=== PATIENT | female | born 1980 | race Caucasian/White ===

== ENCOUNTER 2024-04-14 14:12 | Outpatient (CLI) | payer MEDICARE, MEDICAID, SELFPAY ==
--- OUTSIDE RECORDS SUMMARY | 2024-04-15 11:14 | XMS_ITS | Encounter Summary ---
Author Organization [facility] Address [address] [place] [address] Care Team Providers Care Carbon Coating Machine Operator Name Role Phone Laverne Lopez APRN C.N.PFreya Primary Care Provi [facility] Reason for Referral * Outpatient (Routine) - Authorized Specialty Diagnoses / Procedures Referred By Contac t Referred To Contact Urology Diagnoses Microhematuria Nicotine Dependence Unspecified Matt Dugan M.D. [address] [place] [address] [facility] Region Referral ID Status Reason Start Date Expiration Date V isits Requested Visits Authorized [id number] Authorized 04/15/2024 10/15/2025 1 1 Encounter Details Date Type Department Care Team (Latest Contact Info) Description 04/15/2024 [facility] [address] [place] [address] Matt Dugan M.D. [address] [place] [address] Microhematuria (Primary Dx); Nicotine Dependence Unspecified Social History Tobacco Use Types Packs/Day Years Used Date Smoking Tobacco: Former Cigarettes Q uit: 06/25/2023 Smokeless Tobacco: Never Comments:3-4 cigars daily, s hared with Alcohol Use Standard Drinks/Week Comments Yes 0 (1 standard drink = 0.6 oz pur e alcohol) rarely Social Connection and Isolation Panel [NHANES] A nswer Date Recorded In a typical week, how many times do you talk on the phone with family, friends, or neighbors? Once a week 05/28/2020 How often do you get together with friends or re latives? Never 05/28/2020 How often do you attend holiness or yarsani serv ices? Never 05/28/2020 Do you belong to any clubs o r organizations such as holiness groups, unions, fraternal or athletic groups, or school groups? No 05/28/2020 How often do you attend meet ings of the clubs or organizations you belong to? Never 05/28/2020 Are you , , di vorced, , never , or living with a partner? 05/28/2020 AUDIT-C Answer Date Recorded Q1: How often do you have a drink containing alc ohol? Never 05/28/2020 Average Number of Drinks Not on file 020 Frequency of Binge Drinking Not on file 05/17 Overall Financial Resource Strain (CARDIA) Answe r Date Recorded How hard is it for you to pa y for the very basics like food, housing, medical care, and heating? Somewhat hard 05/28/2020 PHQ-2 Answer Date Recorded PHQ-2 Score 2 03/10/2020 [facility] - Occupational Stress Questionnaire Answer Date Recorded Do you feel stress - tense, restless, nervous, or anxious, or unable to sleep at night because your mind is troubled all the time - these days? To some extent 05/28/2020 Exercise Vital Sign Answer Date Recorde d On average, how many days pe r week do you engage in moderate to strenuous exercise (like a brisk walk)? 0 days 05/28/2020 On average, how many minutes do you engage in exercise at this level? 0 min 05/28/2020 Hunger Vital Sign Answer Date Recorded Within the past 12 months, y ou worried that your food would run out before you got the money to buy more. Sometimes true Within the past 12 months, t he food you bought just didn't last and you didn't have money to get more. Sometimes true 08/2020 PRAPARE - Transportation Answer Date Re corded In the past 12 months, has l ack of transportation kept you from medical appointments or from getting medications? Yes 05/17 In the past 12 months, has l ack of transportation kept you from meetings, work, or from getting things needed for daily living? Yes 05/28/2020 Nutrition Answer Date Recorded Nutrition: EVOO Fat Source Unknown 05/30 Nutrition: Servings of Fruits/Vegetables per Day Not on file 05/30/2023 Dental Answer Date Recorded Dental: Regular Dentist Unknown 05/30/20 Education Answer Date Recorded What is the highest level of school you have completed or the highest degree you have received? 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 [employer] Gender Identity Female 03/10/2020 10:50 PM CDT Sexual Orientation Straight 03/10/2020 10 :50 PM CDT documented as of this encounter Plan of Treatment Scheduled Referrals Name Type Priority Associated Diagnoses Orde r Schedule Urology Referral Outpatient Referral Routine Microhematuria Nicotine Dependence Unspecified Expected: 04/15/2024 (Approximate), Expires: 07/16/2025 documented as of this encounter Visit Diagnoses Diagnosis Microhematuria- Primary Nicotine Dependence Unspecified documented in this encounter Additional Health Concerns Assessment Noted Time PHQ-9 Depression Total Score: 8 05/14/20 19 9:10 AM CDT documented as of this encounter Care Teams Carbon Coating Machine Operator Relationship Specialty Start Date End Date Laverne Lopez APRN, C.N.P. [address] [place] [address] PCP - General 12/01/20 documented as of this encounter
--- OUTSIDE RECORDS SUMMARY | 2024-04-15 11:14 | XMS_ITS | Clinical Summary ---
Author Organization [facility] Address [address] [place] [address] Care Team Providers Care Clutch Inspector Name Role Phone Laverne Lopez APRN C.N.P. Primary Care Provi bandar Source Comments Patient records contain information from all sites at [facility]. For routine questions regarding patient records, call [phone] during business hours, M-F 8:00 AM - 5:00 PM Central Time. Record requests for emergency care only can be directed to [phone] at any time.[facility] Allergies Active Allergy Reactions Criticality Noted Date Comments Bupropion Other (see comments) 07/08/2012 Bupropion Hcl Seizure 04/17/2012 Gabapentin Other (see comments) 06/23/2016 causes seizures Lamotrigine Other (see comments) 08/30/2014 Miconazole Nitrate Other (see comments) 010 Nickel Rash High 12/27/2022 Pregabalin Other (see comments) 07/08/2012 Other reaction(s): Seizures Tioconazole Hives (Reselect Reaction) 07/08/2012 Monistat 7 Tramadol Other (see comments) 07/28/2020 Seizure Seizure Medications Medication Sig Dispensed Refills Start Date End Date Status cholecalciferol (for_VITAMIN D3) 1,000 Unit capsule Take 2,000 Units by mouth daily. 02/26/2017 Active clonazePAM (KlonoPIN) 1 mg tablet Take 1 tablet by mouth at bedtime. 08/01/2016 Active multivitamin capsule Take 1 tablet by mouth daily. 02/26/2017 Active MAPAP EXTRA STRENGTH 500 mg tablet 07/04/2017 Active clonazePAM (for_KlonoPIN) 0.5 mg tablet 07/08/2017 Active escitalopram (for_LEXAPRO) 10 mg tablet Take 20 mg by mouth daily. 07/04/2017 Active naproxen (for_NAPROSYN) 500 mg tablet Take 500 mg by mouth. As needed 12/15/2013 Active ARIPiprazole (ABILIFY) 15 mg tablet Take 15 mg by mouth every morning. 2 04/09/2019 Active dextroamphetamine-a mphetamine (ADDERALL) 30 mg tablet Take 30 mg by mouth 2 (two) times a day. 0 05/05/2019 Active HYDROcodone-acetami nophen (NORCO) 5-325 mg per tablet 10-325 mg-up to 4 daily 05/11/2020 Active krill oil 500 mg capsule Take by mouth. Active naloxone (NARCAN) 4 mg/actuation nasal spray As needed 10/25/2021 Active ergocalciferol (DRISDOL) 50,000 Unit capsule Take 50,000 Units by mouth. 04/14/2014 Active fluconazole (DIFLUCAN) 150 mg tablet Take 1 tablet (150 mg total) by mouth See Admin Instructions. Take one tab now. Repeat in 7 days if symptoms persist. 2 tablet 09/13/2022 Active Additional Information Patient not taking.Reported on 05/23/2023 morphine (MS CONTIN) 15 mg ER tablet Take 15 mg by mouth 2 (two) times a day. 02/05/2023 Active cyclobenzaprine (FLEXERIL) 10 mg tablet Take 10 mg by mouth as needed. 07/02/2023 Active PARoxetine (PAXIL) 10 mg tablet Take 10 mg by mouth daily. 10/19/2023 Active oxyCODONE (ROXICODONE) 10 mg IR tablet Take 10 mg by mouth 3 (three) times a day as needed for severe pain or score 7-10 of 10. 10/19/2023 Active ARIPiprazole (ABILIFY) 20 mg tablet Take 1 tablet by mouth daily. 12/04/2023 Active dextroamphetamine-a mphetamine (ADDERALL) 20 mg tablet TAKE 1 1/2 TABLETS BY MOUTH TWICE DAILY - TEVA BRAND ONLY 11/26/2023 Active escitalopram (LEXAPRO) 20 mg tablet Take 1 tablet by mouth daily. 12/04/2023 Active naproxen (NAPROSYN) 500 mg tablet Take 1 tablet by mouth 2 (two) times a day with meals. 12/15/2013 Active ibuprofen (MOTRIN) 600 mg tablet Take 1 tablet (600 mg total) by mouth every 6 (six) hours as needed for pain. 30 tablet 12/15/2023 Active ibuprofen (MOTRIN) 600 mg tablet Take 1 tablet (600 mg total) by mouth every 6 (six) hours as needed for pain for up to 10 days. 40 tablet 12/30/2023 Active chlorhexidine (PERIDEX) 0.12 % mouthwash Swish and spit 15 mL 2 (two) times a day. 473 mL 12/30/2023 Active Active Problems Problem Noted Date Diagnosed Date Schizoaffective Disorder Bipolar Type 06/01/2020 Overview (06/01/2020): Per patient changed from bipolar to schizoaffective Chronic Pain Syndrome 04/20/2019 Nicotine Dependence Other Tobacco Product 2018 Body Mass Index 40.0 To 44.9 Adult 10/03/2016 Overview (02/05/2017): Body mass index (BMI) 40.0-44.9, adult Rule activated problem due to BMI 40-44 posted on 10/03 at 10:03 SOLDERER DIPPER. 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 Microhematuria (Primary Dx); Nicotine Dependence Unspecified 01/21/2024 Orders Only [facility] Laverne Lopez, TAMIKA, C.N.P. 01/14/2024 Documentation [facility] in [address] [place] [id number] [place], P.T. Discharge Summary from Last 3 Months Immunizations Name Administration Dates Next Due Influenza, Unspecified 07/05/2008 Tdap 06/21/2012,01/31/2009 Family History Medical History Relation Name Comments Breast cancer Aunt maternal Bipolar disorder Father Degenerative disc disease Father Degenerative disc disease Mother Relation Name Status Comments Aunt maternal Father Mother Social History Tobacco Use Types Packs/Day Years Used Date Smoking Tobacco: Former Cigarettes Q uit: 06/25/2023 Smokeless Tobacco: Never Tobacco Cessation:Counseling Given: Not Answered Comments:3-4 cigars daily, shared with Alcohol Use Standard Drinks/Week Comments Yes [...] Never 05/28/2020 How often do you attend buddhism or anabaptism serv ices? Never 05/28/2020 Do you belong to any clubs o r organizations such as buddhism groups, unions, fraternal or athletic groups, or [...] Answer Date Recorded PHQ-2 Score 2 03/10/2020 [facility] - Occupational Stress Questionnaire Answer Date Recorded [...] Date Recorded Dental: Regular Dentist Unknown 05/30/20 23 Education Answer Date Recorded What is the highest level of school you have completed or the highest degree you have received? Some college, no degree 05/28/2020 Sex and Gender Information Value Date Recorded Sex Assigned at Female 09/16/2022 11:32 PM SOLDERER DIPPER Gender Identity Female 03/10/2020 10:50 PM CDT Sexual Orientation Straight 03/10/2020 10 :50 PM CDT Last Filed Vital Signs Vital Sign Reading Time Taken Comments Blood Pressure 134/68 12/31/2023 2:19 PM CDT Pulse 85 12/31/2023 2:15 PM CDT Temperature 37.2 ??C (99 ??F) 12/31/2023 2:19 PM CDT Respiratory Rate 22 12/31/2023 2:19 PM CDT Oxygen Saturation 97% 12/31/2023 2:15 PM CDT Inhaled Oxygen Concentration - - Weight 128 kg (282 lb 3 oz) 12/30/2023 2:20 PM C DT Height 170.2 cm (5' 7) 12/20/2023 11:32 AM CDT Body Mass Index 44.2 12/20/2023 11:32 AM CDT Plan of Treatment Health Maintenance Due Date Last Done Comments Generalized Anxiety (SERGO-7) 1980 Hepatitis C Screening 1980 Mammogram 1980 Visit: Medicare Annual Wellness 1980 Hepatitis B Vaccines (1 of 3 - 19+ 3-dose series) 2000 Cervical Cancer Screening 07/19/20202014, 07/23/2011, 06/02/2010 Lipid (Cholesterol) Screening 03/06/2022 03/06/2017, 07/27/2015 DTaP,Tdap,and Td Vaccines (3 - Td or Tdap) 06/21/2022 06/21/2012, 01/31/2009 Controlled Substance Agreement 02/24/2023 Controlled Substance Monitoring (PHQ-9) 02/24/2023 Controlled Substance Monitoring 02/24/2023 Opioid Risk Tool (ORT) 02/24/2023 PEG assessment for Opioid therapy 02/24/2023 COVID-19 Vaccine (3 - 2022-24 season) 2023 06/16/2021, 05/26/2021 Depression Screening (Annual PHQ-2) 09/16/2023 Influenza Vaccine (#1) 2024 07/05/2008 Glucose Test for Med Monitoring 02/27/2025 02/28/2024, 02/24/2023, 04/26/2022, Additional history exists HIV Screening Completed 11/03/2014 HPV Vaccines Aged Out No longer eligi ble based on patient's age to complete this topic Pneumococcal vaccine (0-64 years) Aged Out No longer eligible based on patient's age to complete this topic Medical Devices Implanted Type Area Twisting Department End Finder Device Identifier Shelf Expiration Date Model / Serial / Lot Legacy Screw Set Ti Breakoff - [place] [id number] Implanted:Qty: 4 on 10/11/2009 Spine Implant Medtronic Description:Device Manufactu rer - Medtronic Sofamor [place]. Device Status Text - [id number] [id number]. Legacy Leonardo Ti 6.35 X 50 - [place] [id number] Implanted:Qty: 2 on 10/11/2009 Spine Implant Medtronic Description:Device Manufactu rer - Medtronic Sofamor [place]. Device Status Text - [id number] [id number]. Screw 6.35 Multi-Axial 6.5 X 35mm Ti - [place] [id number] Implanted:Qty: 2 on 10/11/2009 Spine Implant Medtronic Description:Device Manufactu rer - Medtronic Sofamor [place]. Device Status Text - [id number] [id number]. Screw 6.35 Multi-Axial 6.5 X 40mm Ti - [place] [id number] Implanted:Qty: 2 on 10/11/2009 Spine Implant Medtronic Description:Device Manufactu rer - Medtronic Sofamor [place]. Device Status Text - [id number] [id number]. Procedures Procedure Name Priority Date/Time Associated Diagnosis Comments COMPREHENSIVE METABOLIC PANEL, S/P STAT 02/24/2023 12:46 PM CDT LIPID PANEL, S Routine 03/06/2017 8:33 AM CDT PATHOLOGY POULTRY SEXER CYTOLOGY Routine 12:00 AM SOLDERER DIPPER HIV-1/-2 AG AND AB SCREEN Routine 11/03/2014 12:18 PM SOLDERER DIPPER from Last 3 Months or Most Recently Relevant to Health Maintenance Results * (ABNORMAL) Lipid Panel (03/06/2017 8:33 AM CDT) Cholesterol, Total 170 <=199 MGDL POWERCHART Comment: 2013 National Lipid Association recommendations for Total Cholesterol in adults ages 18 and up: Desirable <200 mg/dL Borderline high 200-239 mg/dL High 240 mg/dL 2014 National Lipid Association recommendations for Total Cholesterol in children ages 2 to 17. Acceptable <170 mg/dL Borderline High 170-199 mg/dL High 200 mg/dL HX HDL 38(L) >=50 MGDL POWERCHART Comment: 2014 National Lipid Association recommendations for HDL-C in adults ages 18 and up: Low <40 mg/dL (Men) Low <50 mg/dL (Women) 2014 National Lipid Association recommendations for HDL-C in children ages 2 to 17. Low <40 mg/dL Borderline Low 40-45 mg/dL Acceptable >45 mg/dL Triglycerides 247(H) <=149 MGDL POWERCHART Comment: 2014 National Lipid Association recommendations for Triglycerides in adults ages 18 and up: Normal <150 mg/dL Borderline High 150-199 mg/dL High 200-499 mg/dL Very High 500 mg/dL 2014 National Lipid Association recommendations for Triglycerides in children ages 2 to 9. Acceptable <75 mg/dL Borderline High 75-99 mg/dL High 100 mg/dL 2014 National Lipid Association recommendations for Triglycerides in children ages 10 to 17. Acceptable <90 mg/dL Borderline High 90-129 mg/dL High 130 mg/dL Trigs >400mg/dL: Triglycerides >400 mg/dL. Calculated LDL cholesterol is not valid. Non-HDL cholesterol may be used for risk assessment when triglycerides are >400mg/dL. Calculated LDL 83 <=129 MGDL POWERCHART Comment: 2014 National Lipid Association recommendations for LDL-C in adults ages 18 and up: Desirable <100 mg/dL Above desirable 100-129 mg/dL Borderline high 130-159 mg/dL High 160-189 mg/dL Very High 190 mg/dL 2014 National Lipid Association recommendations for LDL-C in children ages 2 to 17. Acceptable <110 mg/dL Borderline High 110-129mg/dL High 130 mg/dL LDL-C >190mg/dL: The markedly elevated LDL level is suggestive of a genetic condition such as familial hypercholesterolemia(FH) or familial defective apolipoprotein B-100 (FDB). Molecular genetic testing for FH and FDB is available through [facility]: FH/ADH Genetic Reflex Panel (test ADHP). Acquired (non-genetic) causes of markedly increased LDL cholesterol include cholestatic liver disease due to the presence of LpX. If a genetic form of hypercholesterolemia is suspected, family studies including biochemical testing for lipids (total cholesterol,triglycerides, LDL cholesterol and HDL cholesterol) are recommended. ??Please contact the laboratory at or the on-line test catalog at [facility] for information about how to order these tests or to speak with a genetic counselor. Further interpretation would require clinical information. Total Cholesterol/HDL Ratio 4.00 POWERCHART HXLDL/HDL 2 POWERCHART Blood 03/06/2017 8:33 AM CDT Nan Cui APRN, C.N.P., R.N. LAB BL OOD ADD-ON POWERCHART * Pathology POULTRY SEXER Cytology (07/19/2015 12:00 AM SOLDERER DIPPER) 07/19/2015 Narrative [facility] - 07/29/2015 10:16 AM SOLDERER DIPPER [facility] in [address] [place] [address] ??[phone] Patient Name: BELLA HOFFMAN Collected: 07/19/2015 Address: [facility]/State/Zip: [address] [place] [address] ??[phone] Received: Reported: 07/20/2015 07/29/2015 Soc. Sec. #: ?/Age/Sex 1980 (Age: 34) ??F Physician(s): KATE CUI CNP Copy To: ? [facility] ??[phone] [facility], ??[place] ??[address] CYTOPATHOLOGY POULTRY SEXER REPORT FINAL CYTOLOGIC DIAGNOSIS Pap Smear - ThinPrep with HPV: NEGATIVE FOR INTRAEPITHELIAL LESION OR MALIGNANCY REACTIVE/REPARATIVE CHANGES. ENDOCERVICAL CELLS/COMPONENT PRESENT. SATISFACTORY SPECIMEN FOR EVALUATION. ??This specimen required a physician interpretation under CLIA 1987 ?? Electronically Signed Out By [facility] [place]/07/29/2015 ORIN BREAUX M.D. AM [facility](ASCP) The Pap test is a screening procedure and, as such, is subject to both false positive and false negative results as evidenced by published data. ??It is not a diagnostic test and results should be interpreted in the context of the patient's history and other clinical findings. ??Obtaining periodic Pap tests may help to minimize the consequences of any false negatives that may occur. Procedures/Addenda: HUMAN PAPILLOMA VIRUS ADDENDUM ? Date Ordered: ? 07/20/2015 ? Status: ??Signed Out Date Complete: ? 07/28/2015 ? By: ??AJ Wawrzynaik CT(ASCP) Date Reported: ? 07/29/2015 INTERPRETATION: Test: Aptima High Risk HPV Result: NEGATIVE FOR HIGH RISK HPV Specimen Description: ThinPrep? ? ? Pap Test PreservCyt Solution HPV by Research Associate Molecular Biology-Mediated Amplification (TMA) for E6/E7 viral messenger RNA (mRNA) is an in-vitro diagnostic test for the detection of 14 high-risk Human Papillomavirus (HPV) types (16, 18, 31, 33, 35, 39, 45, 51, 52, 56, 58, 59, 66, and 68) in cervical specimen. Intended for co-testing or reflex testing of ASC-US Pap smears. Interpretation for patients with ASC-US cytology: Low likelihood of underlying high-grade CIN2-3 or cancer; results are not intended to prevent women from proceeding to colposcopy. Interpretation for patients with NILM cytology who are over 30 years old: Very low likelihood of underlying high-grade ANGELY or cancer; results do not preclude future HPV infection or cytologic abnormalities with underlying CIN2-3 or cancer. SPECIMEN(S) RECEIVED: Pap Smear - ThinPrep with HPV CLINICAL HISTORY: Date of Last Menstrual Period: 06-30-15 Hormonal History: No hormonal therapy Other Clinical Conditions: HPV TYPING REQUESTED Nan Cui APRN, C.N.P., R.N. LAB PA P COPATH ORDERABLES [facility] * HIV-1/-2 Ag and Ab Screen (11/03/2014 12:18 PM SOLDERER DIPPER) HIV-1/-2 Antibody Negative Negative POWERCHART Comment: Negative result does not rule out HIV infection. If acute HIV infection is suspected in a high-risk individual, submit plasma specimen for HIV-1 RNA quantification test (HIVQU) and/or HIV-2 DNA/RNA test (FHV2Q). Test Performed by: [facility] - [address] [address] Supervisor [employer]: Ari Enriquez II, M.D., Ph.D. Blood 11/03/2014 12:1 8 PM SOLDERER DIPPER Mayra Benavidez M.D. LAB MICROBIOLOGY - BLOOD ORDERABLES POWERCHART from Last 3 Months or Most Recently Relevant to Health Maintenance Care Teams Clutch Inspector Relationship Specialty Start Date End Date Laverne Lopez APRN, C.N.P. [address] [place] [address] PCP - General 12/01/20
--- OUTSIDE RECORDS SUMMARY | 2024-04-15 11:14 | XMS_ITS | Referral Summary ---
Author Organization [facility] Address [address] [place] [address] Care Team Providers Care Duplication Specialist Name Role Phone Laverne Lopez APRN, C.N.P. Primary Care Provi bandar Source Comments Patient records contain information from all sites at [facility]. For routine questions regarding patient records, call [phone] during business hours, M-F 8:00 AM - 5:00 PM Central Time. Record requests for emergency care only can be directed to [phone] at any time.[facility] Encounters Date Type Department Care Team Description 04/15/2024 [facility] [address] [place] [address] Matt Dugan M.D. Microhematuria (Primary Dx); Nicotine Dependence Unspecified 01/21/2024 Orders Only [facility] PCP [facility] MNT Laverne Lopez APRN, C.N.P. 01/14/2024 Documentation Department of Rehabilitation in [address] [place] [id number] [place], P.T. Discharge Summary from Last 3 Months Allergies Active Allergy Reactions Criticality Noted Date [...] BMI 40-44 posted on 10/03 at 10:03 QUALITY ASSURANCE AUDITOR. 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 Never 05/28/2020 Do you belong to any clubs o r organizations such as taoism groups, unions, fraternal or athletic groups, or [...] Answer Date Recorded PHQ-2 Score 2 03/10/2020 [facility] of Occupat ional Health - Occupational Stress [...] Sex Assigned at Female 09/16/2022 11:32 PM QUALITY ASSURANCE AUDITOR Gender Identity Female 03/10/2020 10:50 PM CDT [...] 12/20/2023 11:32 AM CDT Plan of Treatment Not on file Medical Devices Implanted Type Area Hose Finisher Device Identifier Shelf Expiration Date Model / Serial / Lot Legacy Screw Set Ti Breakoff - [place] [id number] Implanted:Qty: 4 on 10/11/2009 Spine Implant Medtronic Description:Device Manufactu rer - Medtronic Sofamor [place]. Device Status Text - SPINE [id number]. Legacy Leonardo Ti 6.35 X 50 - [place] [id number] Implanted:Qty: 2 on 10/11/2009 Spine Implant Medtronic Description:Device Manufactu rer - Medtronic Sofamor [place]. Device Status Text - SPINE [id number]. Screw 6.35 Multi-Axial 6.5 X 35mm Ti - [place] [id number] Implanted:Qty: 2 on 10/11/2009 Spine Implant Medtronic Description:Device Manufactu rer - Medtronic Sofamor [place]. Device Status Text - SPINE [id number]. Screw 6.35 Multi-Axial 6.5 X 40mm Ti - [place] [id number] Implanted:Qty: 2 on 10/11/2009 Spine Implant Medtronic Description:Device Manufactu rer - Medtronic Sofamor [place]. Device Status Text - SPINE [id number]. Procedures Procedure Name Priority Date/Time Associated Diagnosis Comments COMPREHENSIVE METABOLIC PANEL, S/P STAT 02/24/2023 12:46 PM CDT LIPID PANEL, S Routine 03/06/2017 8:33 AM CDT PATHOLOGY GANG VIBRATOR OPERATOR CYTOLOGY Routine 5 12:00 AM QUALITY ASSURANCE AUDITOR HIV-1/-2 AG AND AB SCREEN Routine 11/03/2014 12:18 PM QUALITY ASSURANCE AUDITOR from Last 3 Months or Most Recently Relevant to Health Maintenance Results * (ABNORMAL) Lipid Panel (03/06/2017 8:33 AM CDT) [facility] Signature Cholesterol, Total 170 <=199 MGDL POWERCHART Comment: 2014 National Lipid Association recommendations for Total [...] for FH and FDB is available through [facility]: FH/ADH Genetic Reflex Panel (test ADHP). Acquired (non-genetic) causes of markedly increased LDL cholesterol include cholestatic liver disease due to the presence of LpX. If a genetic form of hypercholesterolemia is suspected, family studies including biochemical testing for lipids (total cholesterol,triglycerides, LDL cholesterol and HDL cholesterol) are recommended. ??Please contact the laboratory at or the on-line test catalog at [employer] for information about how to order these tests or to speak with a genetic counselor. Further interpretation would require clinical information. Total Cholesterol/HDL Ratio 4.00 POWERCHART HXLDL/HDL 2 POWERCHART Blood 03/06/2017 8:33 AM CDT Nan Carrillo APRN, C.N.P., R.N. LAB BL OOD ADD-ON POWERCHART * Pathology GANG VIBRATOR OPERATOR Cytology (07/19/2015 12:00 AM QUALITY ASSURANCE AUDITOR) 07/19/2015 Narrative [facility] - 07/29/2015 10:16 AM QUALITY ASSURANCE AUDITOR [facility] in [address] [place] [address] ??[phone] Patient Name: BELLA HOFFMAN Collected: 07/19/2015 Address: City/State/Zip: [address] [place] [address] ??[phone] Received: Reported: 07/20/2015 07/29/2015 Soc. Sec. #: ?/Age/Sex 1980 (Age: 34) ??F Physician(s): KATE CARRILLO CNP Copy To: ? [facility] ??[id number] [address] [facility], ??[place] ??[address] CYTOPATHOLOGY GANG VIBRATOR OPERATOR REPORT FINAL CYTOLOGIC DIAGNOSIS Pap Smear - ThinPrep with HPV: NEGATIVE FOR INTRAEPITHELIAL LESION OR MALIGNANCY REACTIVE/REPARATIVE CHANGES. ENDOCERVICAL CELLS/COMPONENT PRESENT. SATISFACTORY SPECIMEN FOR EVALUATION. ??This specimen required a physician interpretation under CLIA 1987 ?? Electronically Signed Out By [facility]/07/29/2015 ORIN BREAUX M.D. AM [facility](ASCP) The Pap test is a screening procedure [...] Out Date Complete: ? 07/28/2015 ? By: ??MICHAEL Chavezzneto CT(ASCP) Date Reported: ? 07/29/2015 INTERPRETATION: Test: Aptima High Risk HPV Result: NEGATIVE FOR HIGH RISK HPV Specimen Description: ThinPrep? ? ? Pap Test PreservCyt Solution HPV by Trucksmith-Mediated Amplification (TMA) for E6/E7 viral messenger RNA [...] Other Clinical Conditions: HPV TYPING REQUESTED Nan Hickman Lorena LUNDBERG C.N.P., R.N. LAB [place]OTT P COPATH ORDERABLES [facility] * HIV-1/-2 Ag and Ab Screen (11/03/2014 12:18 PM QUALITY ASSURANCE AUDITOR) HIV-1/-2 Antibody Negative Negative POWERCHART Comment: Negative result does not rule out HIV infection. If acute HIV infection is suspected in a high-risk individual, submit plasma specimen for HIV-1 RNA quantification test (HIVQU) and/or HIV-2 DNA/RNA test (FHV2Q). Test Performed by: [place] [address] Plastic Process Technician: Ari Enriquez II, M.D., Ph.D. Blood 11/03/2014 12:1 8 PM QUALITY ASSURANCE AUDITOR Mayra Benavidez M.D. LAB MICROBIOLOGY - BLOOD ORDERABLES POWERCHART from Last 3 Months or Most Recently Relevant to Health Maintenance Care Teams Duplication Specialist Relationship Specialty Start Date End Date Laverne Lopez APRN, C.N.P. [address] [place] [phone] PCP - General 12/01/20
--- OUTSIDE RECORDS SUMMARY | 2024-04-15 11:14 | XMS_ITS ---
Author Organization [facility] Address [address] [place] [address] Care Team Providers Care Finish Machine Tender Name Role Phone Unavailable Unavailable Unavailable Surgery Details Not on file Complications Check Surgery Details section. Procedure Estimated Blood Loss Check Surgery Details section. Procedure Findings Check Surgery Details section. Procedure Specimens Taken Check Surgery Details section.
--- OUTSIDE RECORDS SUMMARY | 2024-04-15 11:15 | XMS_ITS | Encounter Summary ---
Author Organization [facility] Address [address] [place] [address] Care Team Providers Care Wildlife Conservation Professor Name Role Phone Laverne Lopez APRN C.NFreyaPFreya Primary Care Provi [facility] Reason for Visit * Reason Comments Discharge Summary Encounter Details Date Type Department Care Team (Late st Contact Info) Description 01/14/2024 Documentation Department of Rehabilitation in [address] [place] [address] [place] PFreyaTFreya Discharge Summary Social History Tobacco Use Types Packs/Day Years [...] Never 05/28/2020 How often do you attend alevism or lutheran serv ices? Never 05/28/2020 Do you belong to any clubs o r organizations such as alevism groups, unions, fraternal or athletic groups, or [...] Answer Date Recorded PHQ-2 Score 2 03/10/2020 [facility] of Occupat ional Health - Occupational Stress [...] Sex Assigned at Female 09/16/2022 11:32 PM COLUMNIST Gender Identity Female 03/10/2020 10:50 PM CDT Sexual Orientation Straight 03/10/2020 10 :50 PM CDT documented as of this encounter Progress Notes * [place] P.T. - 01/14/2024 1:51 PM CDT PHYSICAL THERAPY DISCHARGE NOTE Medical Diagnosis: 1. Pain Hip Left 2. Postlaminectomy Syndrome 3. Other Spondylosis Cervical Region Date of Onset: 11/12/2023 Start of care date: 11/28/2023 Number of visits from start of care: 1 Date of final visit: 11/28/2023 DISCHARGE STATUS STATUS OF GOALS: Current status unknown as pt has not been seen in physical therapy since their last visit. REASON FOR DISCHARGE: Pt did not return for therapy. DISCHARGE PLAN/RECOMMENDATIONS: The patient is encouraged to continue with therapeutic recommendations provided throughout the course of care. If additional skilled care is indicated in the future, anew physical therapy order and evaluation would be required. documented in this encounter Plan of Treatment Not on file documented as of this encounter Visit Diagnoses Not on filedocumented in this encounter Additional Health Concerns Assessment Noted Time PHQ-9 Depression Total Score: 8 05/14/20 19 9:10 AM CDT documented as of this encounter Care Teams Wildlife Conservation Professor Relationship Specialty Start Date End Date Laverne Lopez APRN, C.N.P. [address] [phone] PCP - General 12/01/20 documented as of this encounter
--- OUTSIDE RECORDS SUMMARY | 2024-04-15 11:15 | XMS_ITS | Referral Summary ---
Author Organization [facility] Address [address] [place] [address] Care Team Providers Care Loss Prevention Analyst Name Role Phone Richard River MD Unavailable [phone] Allergies Active Allergy Reactions Criticality Noted Date Comments Gabapentin 07/28/2020 Confused. Pregabalin 07/28/2020 Sezures Penicillins Rash Low 07/28/2020 Tramadol 07/28/2020 Seizure Bupropion 07/28/2020 Seizures. Medications Medication Sig Dispensed Refills Start Date End Date Status nitrofurantoin, macrocrystal-monoh ydrate, (MACROBID) 100 MG capsuleIndications :Pelvic pain in female Take 1 capsule by mouth 2 times daily. 14 capsule 0 01/18/2012 Active Additional Information Patient not taking.Reported on 07/28/2020 HYDROcodone-acetam inophen (VICODIN) 5-500 MG per tabletIndications: Pelvic pain in female Take 1-2 tablets by mouth every 6 hours as needed for pain. 30 tablet 0 01/22/2012 Active Amphetamine-Dextro amphetamine (ADDERALL PO) Take 30 mg by mouth daily Active oxyCODONE-acetamin ophen (PERCOCET) 5-325 MG per tablet Take 1-2 tablets by mouth every 4 hours as needed for pain. 15 tablet 0 03/03/2013 Active Additional Information Patient not taking.Reported on 07/28/2020 ondansetron (ZOFRAN) 4 MG tablet Take 1 tablet by mouth every 8 hours as needed for nausea. 6 tablet 0 03/03/2013 Active Additional Information Patient not taking.Reported on 07/28/2020 ARIPiprazole (ABILIFY) 15 MG tablet Take 15 mg by mouth daily Active escitalopram (LEXAPRO) 20 MG tablet Take 20 mg by mouth daily Active naproxen (NAPROXEN) 500 MG EC tablet 500 mg daily. Active amitriptyline (ELAVIL) 50 MG tablet Take 50 mg by mouth At Bedtime Active MAGNESIUM CITRATE PO 300 mg daily. Active Cholecalciferol (VITAMIN D3) 25 MCG (1000 UT) CAPS 1 tablet daily. A ctive Krill Oil (OMEGA-3) 500 MG CAPS 500 mg daily. Active vitamin C (ASCORBIC ACID) 1000 MG TABS Take 1,000 mg by mouth daily Active VITAMIN A PO 2,400 mcg daily. Active Inositol 500 MG TABS 500 mg daily. Active Active Problems Problem Noted Date Diagnosed Date Pelvic pain in female 01/22/2012 Social History Tobacco Use Types Packs/Day Years Used Date Smoking Tobacco: Never Smokeless Tobacco: Never PHQ-2 Answer Date Recorded PHQ-2 Score 2 07/28/2020 Adolescent Education Answer Date Record ed Getting School Help Needed Not on file 07/03 Sex and Gender Information Value Date Recorded Sex Assigned at Not on file Gender Identity Not on file Sexual Orientation Not on file Last Filed Vital Signs Vital Sign Reading Time Taken Comments Blood Pressure 105/64 03/03/2013 3:50 PM CDT Pulse 110 03/03/2013 1:20 PM CDT Temperature 36.4 ??C (97.6 ??F) 03/03/2013 1:20 PM CD T Respiratory Rate 20 03/03/2013 1:20 PM CDT Oxygen Saturation 100% 03/03/2013 3:47 PM CDT Inhaled Oxygen Concentration - - Weight 145.2 kg (320 lb) 07/28/2020 1:12 PM COMMUNITY RESOURCE OFFICER Height 144.8 cm (4' 9) 07/28/2020 1:12 PM COMMUNITY RESOURCE OFFICER Body Mass Index 69.25 07/28/2020 1:12 PM COMMUNITY RESOURCE OFFICER Plan of Treatment Not on file Care Teams Loss Prevention Analyst Relationship Specialty Start Date End Date Richard River MD 06/15/20
--- OUTSIDE RECORDS SUMMARY | 2024-04-15 11:15 | XMS_ITS | Clinical Summary ---
Author Organization [facility] Address [address] [place] [address] Care Team Providers Care Swimming Pool Salesperson Name Role Phone Richard River MD Unavailable [phone] Allergies Active Allergy Reactions Criticality Noted [...] 145.2 kg (320 lb) 07/28/2020 1:12 PM ENGINEER GEOPHYSICAL LABORATORY Height 144.8 cm (4' 9) 07/28/2020 1:12 PM ENGINEER GEOPHYSICAL LABORATORY Body Mass Index 69.25 07/28/2020 1:12 PM ENGINEER GEOPHYSICAL LABORATORY Plan of Treatment Not on file Care Teams Swimming Pool Salesperson Relationship Specialty Start Date End Date Richard River MD 06/15/20
--- OUTSIDE RECORDS SUMMARY | 2024-04-15 11:15 | XMS_ITS | Encounter Summary ---
Author Organization [facility] Address [address] [place] [address] Care Team Providers Care Bander Hand Name Role Phone Laverne Lopez APRN, C.N.P. Primary Care Provi bandar Reason for Referral * Outpatient (Routine) - Authorized Specialty Diagnoses / Procedures Referred By Contac t Referred To Contact Laverne Lopez APRN, C.N.P. [address] [place] [phone] [facility] Region Referral ID Status Reason Start Date Expiration Date V isits Requested Visits Authorized [id number] Authorized 01/21/2024 07/22/2025 1 1 Scheduling Instructions Nurse AWV Do not schedule prior to due date to ensure insurance coverage Visit: Medicare Annual Wellness Never done. Encounter Details Date Type Department Care Team (Late st Contact Info) Description 01/21/2024 Orders Only [facility] SEMN PCP [facility] MNT Laverne Lopez APRN, C.N.P. [address] [place] [address] Social History Tobacco Use Types Packs/Day Years [...] Never 05/28/2020 How often do you attend cheondoism or hindu serv ices? Never 05/28/2020 Do you belong to any clubs o r organizations such as cheondoism groups, unions, fraternal or athletic groups, or [...] Answer Date Recorded PHQ-2 Score 2 03/10/2020 [facility] of Occupat ional Health - Occupational [...] Sex Assigned at Female 09/16/2022 11:32 PM TOBACCO SPRAYER Gender Identity Female 03/10/2020 10:50 PM CDT Sexual Orientation Straight 03/10/2020 10 :50 PM CDT documented as of this encounter Plan of Treatment Scheduled Referrals Name Type Priority Associated Diagnoses Orde r Schedule Primary Care nurse visit (clinic) - [facility] Region; Medicare Annual Wellness Outpatient Referral Routine Expected: 02/18/2024, Expires: 07/19/2024 documented as of this encounter Visit Diagnoses Not on filedocumented in this encounter Additional Health Concerns Assessment Noted Time PHQ-9 Depression Total Score: 8 05/14/20 19 9:10 AM CDT documented as of this encounter Care Teams Bander Hand Relationship Specialty Start Date End Date Laverne Lopez APRN, C.N.P. [address] [place] [phone] PCP - General 12/01/20 documented as of this encounter
--- OUTSIDE RECORDS SUMMARY | 2024-04-15 11:15 | XMS_ITS | Clinical Summary ---
Author Organization [employer] [facility] Address [place], [place] [address] Care Team Providers Care Project Internship Name Role [facility] Allergies Active Allergy Reactions Criticality Noted Date Comments Gabapentin Other - Describe In Comment Field,*Unknown 06/23/2016 causes seizures causes seizures Lamotrigine *Unknown 08/30/2014 Pregabalin Seizures 07/08/2012 Tioconazole Hives 07/08/2012 Monistat 7 Penicillins Hives,Rash 06/25/2016 Tramadol *Unknown 02/28/2024 Was told by a provider not to take this medication because of seizure history Bupropion Seizures 07/08/2012 Medications Medication Sig Dispensed Refills Start Date End Date Status naproxen (NAPROSYN) 500 mg tabletIndications:P ain Take 1 tablet by mouth 2 times daily with meals. 30 tablet 0 12/15/2013 Active ergocalciferol (VITAMIN D2; DRISDOL) 50,000 unit capsuleIndications: Vitamin D deficiency Take 1 capsule by mouth every 4 weeks. 12 capsule 0 04/14/2014 Active multivitamins pediatric chewable (CHILDREN'S MULTIVIT W/EXTRA C) chewable tabletIndications:v itamin deficiency prevention Take 1 tablet by mouth once daily. Indications: VITAMIN DEFICIENCY PREVENTION Active clonazePAM (KLONOPIN) 1 mg tabletIndications:A NXIETY Take 1 mg by mouth at bedtime. Indications: ANXIETY Active dextroamphetamine-a mphetamine (ADDERALL XR) 10 mg Extended-Release capsule Take 10 mg by mouth 2 times daily 07/12/2017 Active dextroamphetamine-a mphetamine (ADDERALL XR) 20 mg Extended-Release capsule Take 20 mg by mouth 2 times daily 07/12/2017 Active escitalopram oxalate (LEXAPRO) 10 mg tablet Take 30 mg by mouth once daily. 07/04/2017 Active clonazePAM (KLONOPIN) 0.5 mg tablet Take 0.5 mg by mouth every morning. Active ACETAMINOPHEN ORAL Take by mouth. Ac tive ARIPiprazole (ABILIFY) 15 mg tablet Take 15 mg by mouth. 04/09/2019 Active albuterol HFA (PROVENTIL HFA) 90 mcg/actuation inhalerIndications: SOB (shortness of breath) Inhale 2 Puffs by mouth 4 times daily if needed. 1 Inhaler 2 06/17/2020 Active Active Problems Problem Noted Date Diagnosed Date Bipolar disorder, unspecified 08/22/2015 Schizoaffective disorder 08/22/2015 Overview: Rule out Friedreich's ataxia 12/15/2013 Overview: 9 P trisomy Gene FRDA2 Diagnosed 2008 [facility] Vitamin D deficiency 11/17/2013 Major depression 03/31/2013 Seizure disorder 12/02/2012 ADHD (attention deficit hyperactivity disorder) 12/02/2012 Displacement of lumbar inter vertebral disc without myelopathy 12/29/2007 Acquired spondylolisthesis 12/29/2007 Tobacco use disorder 12/29/2007 Overview: Currently smoking 5 cigarettes/day. Encouraged cessation. Spinal stenosis, unspecified region other than c ervical 11/28/2007 Overview: Congenital anaquired Resolved Problems Problem Noted Date Diagnosed Date Resolved Date Mood disorder 02/03/2013 03/31/2013 Encounters Date Type Department Care Team Description 02/28/2024 5:46 PM CDT - 02/28/2024 7:50 PM CDT Emergency [address] [address] Ann Morales MD Bilateral hand swelling (Primary Dx); Foot swelling Discharge Disposition: Home Self Care 02/28/2024 Travel from Last 3 Months Immunizations Name Administration Dates Next Due Td (Age >=7 Years) 08/05/2001 Tdap 06/21/2012 Family History Medical History Relation Name Comments No Known Problems Daughter 1 No Known Problems Daughter 2 No Known Problems Father No Known Problems Half-Brother 1 Same mom . No Known Problems Half-Brother 2 Same dad . No Known Problems Half-Sister 1 Same mom. No Known Problems Half-Sister 2 Same dad. No Known Problems Mother Vegan. No Known Problems Son Relation Name Status Comments Brother 1 Alive Brother 2 Alive Daughter 1 Alive Daughter 2 Alive Father Alive Half-Brother 1 Alive Half-Brother 2 Alive Half-Sister 1 Alive Half-Sister 2 Alive Mother Alive Son Alive Social History Tobacco Use Types Packs/Day Years Used Date Smoking Tobacco: Every Day Cigarettes Smokeless Tobacco: Never Tobacco Cessation:Ready to Q uit: Yes; Counseling Given: Yes Comments:Tryng to quit smoking in 2019. Alcohol Use Standard Drinks/Week Comments Yes 0 (1 standard drink = 0.6 oz pur e alcohol) seldom x3/year Sex and Gender Information Value Date Recorded Sex Assigned at Not on file Gender Identity Not on file Sexual Orientation Not on file Obstetrics History Last Filed Vital Signs Vital Sign Reading Time Taken Comments Blood Pressure 125/87 02/28/2024 7:50 PM CDT Pulse 65 02/28/2024 7:50 PM CDT Temperature 36.4 ??C (97.6 ??F) 02/28/2024 4:55 PM CD T Respiratory Rate 16 02/28/2024 7:50 PM CDT Oxygen Saturation 99% 02/28/2024 7:50 PM CDT Inhaled Oxygen Concentration - - Weight 124.7 kg (275 lb) 02/28/2024 4:41 PM CDT Height 170.2 cm (5' 7) 02/28/2024 4:41 PM CDT Body Mass Index 43.07 02/28/2024 4:41 PM CDT Plan of Treatment Health Maintenance Due Date Last Done Comments Depression screening for age 12+ 1993 HIV for age 15-65 1996 BMI (ht and wt on same day) for age 18+ 12/09/1999 Hepatitis C screening for ag e 18-79 12/09/1999 Pap test for age 21-65 07/23/2014 07/23/2011 Tetanus booster 06/21/2022 06/21/2012, 08/05/2001 COVID-19 vaccine series (2022-24 season) 2023 06/16/2021, 05/26/2021 Influenza for age 9-49 05/17/2024 Tdap Completed 06/21/2012 Pneumococcal series for age 6-64 Aged Out No longer eligible b ased on patient's age to complete this topic Procedures Procedure Name Priority Date/Time Associated Diagnosis Comments URINALYSIS MICROSCOPIC STAT 02/28/2024 6:59 PM CDT UA W/ SEDIMENT EXAM REFLEXED PER CRITERIA STAT 02/28/2024 6:59 PM CDT PLATELET ESTIMATE STAT 02/28/2024 6:1 3 PM CDT RED CELL MORPHOLOGY STAT 02/28/2024 6 :13 PM CDT EXTRA TUBE ROSE Today 02/28/2024 6:13 PM CDT EXTRA TUBE GOLD/SST Today 02/28/2024 6 :13 PM CDT ANTINUCLEAR ANTIBODY BY IFA STAT 02/28/2024 6:13 PM CDT RA QUANTITATIVE STAT 02/28/2024 6:13 PM CDT PROTIME-INR STAT 02/28/2024 6:13 PM CDT APTT STAT 02/28/2024 6:13 PM CDT PRO-BNP STAT 02/28/2024 6:13 PM CDT BASIC METABOLIC PANEL STAT 02/28/2024 6:13 PM CDT CBC W PLT NO DIFF STAT 02/28/2024 6:1 3 PM CDT from Last 3 Months Results * (ABNORMAL) URINALYSIS MICROSCOPIC (02/28/2024 6:59 PM CDT) RBC 3-5(A) 0-2, None Seen /HPF 02/28/2024 7:24 PM T [facility] WBC 0-2 0-2, 3-5, None Seen /HPF 02/28/2024 7:24 PM T [facility] BACTERIA Many(A) None Seen, Rare, Few Bacteria/ HPF 02/28/2024 7:24 PM T [facility] EPITHELIAL CELLS Few None Seen, Few Epi/HPF 02/28/2024 7:24 PM T [facility] AMORPHOUS Present(A) (none) 02/28/2024 7:[address] [facility] Urine URINE SPECIMEN / Unknown Non-Blood / Unknown 02/28/2024 6:59 PM CDT 02/28/2024 7:03 PM CDT Ann Morales MD URINE Performing Organization Address [facility] Co de Phone Number [facility] [address] [place] [phone] * (ABNORMAL) UA W/ SEDIMENT EXAM REFLEXED PER CRITERIA (02/28/2024 6:59 PM CDT) COLOR Yellow Yellow Color 02/28/2024 7:13 PM T [facility] CLARITY Slightly Cloudy(A) Clear Clarity 02/28/2024 7:[address] [facility] SPECIFIC GRAVITY,URINE 1.025 1.010, 1.015, 1.020, 1.025 02/28/2024 7:[address] [facility] PH,URINE 7.5 6.0, 7.0, 8.0, 5.5, 6.5, 7.5, 8.5 02/28/2024 7:[address] [facility] UROBILINOGEN, QUALITATIVE Normal Normal EU/dl 02/28/2024 7:[address] [facility] PROTEIN, URINE Negative Negative mg/dL 02/28/2024 7:[address] [facility] GLUCOSE, URINE Negative Negative mg/dL 02/28/2024 7:13 PM CDT [facility] KETONES,URINE Negative Negative mg/dL 02/28/2024 7:13 PM CDT [facility] BILIRUBIN,URI NE Negative Negative 02/28/2024 7:13 PM CDT [facility] OCCULT BLOOD,URINE Trace(A) Negative 02/28/2024 7:13 PM CDT [facility] NITRITE Positive(A) Negative 02/28/2024 7:13 PM CDT [facility] LEUKOCYTE ESTERASE Negative Negative 02/28/2024 7:13 PM CDT [facility] Urine URINE SPECIMEN / Unknown Non-Blood / Unknown 02/28/2024 6:59 PM CDT 02/28/2024 7:03 PM CDT Ann Morales MD URINE [facility] [address] [place] [address] * ANTINUCLEAR ANTIBODY BY IFA (02/28/2024 6:13 PM CDT) ANTINUCLEAR ANTIBODY (ABDULAZIZ) Negative Negative 03/02/2024 12:24 PM CDT [facility] Blood BLOOD SPECIMEN / Unknown Extra Tube / Unknown 02/28/2024 6:13 PM CDT 02/28/2024 6:19 PM CDT Narrative [facility] - 03/02/2024 12:24 PM CDT Method: ABDULAZIZ screen performed by (IFA) on HEP-2 substrate, IgG Ann Morales MD CHEMISTRY [facility] [address] [place] [address], * RED CELL MORPHOLOGY (02/28/2024 6:13 PM CDT) RBC COMMENT RBC morphology appears normal RBC morphology appears normal, RBC morphology within normal limits for newborns. 02/28/2024 7:06 PM CDT [facility] LARGE PLATELETS Present 02/28/2024 7:06 PM CDT [facility] Blood BLOOD SPECIMEN / Unknown Venipuncture / Unknown 02/28/2024 6:13 PM CDT 02/28/2024 6:18 PM CDT Ann Morales MD HEMATOLOGY Performing Organization Address City/[facility]/ZIP Co de Phone Number [facility] [address] [place] [address] * PLATELET ESTIMATE (02/28/2024 6:13 PM CDT) PLATELET ESTIMATE Adequate Adequate, No estimate 02/28/2024 7:06 PM CDT [facility] Blood BLOOD SPECIMEN / Unknown Venipuncture / Unknown 02/28/2024 6:13 PM CDT 02/28/2024 6:18 PM CDT Ann Morales MD HEMATOLOGY Performing Organization Address [facility]/ZIP Co de Phone Number [facility] [address] [place] [address] * EXTRA TUBE ROSE (02/28/2024 6:13 PM CDT) Blood BLOOD SPECIMEN / Unknown Extra Tube / Unknown 02/28/2024 6:13 PM CDT 02/28/2024 6:19 PM CDT Doctor Unknown LABORATORY Performing Organization Address City/[facility]/ZIP Co de Phone Number [facility] [address] [place] [address] * EXTRA TUBE GOLD/SST (02/28/2024 6:13 PM CDT) Blood BLOOD SPECIMEN / Unknown Extra Tube / Unknown 02/28/2024 6:13 PM CDT 02/28/2024 6:19 PM CDT Doctor Unknown LABORATORY Performing Organization Address City/[facility]/ZIP Co de Phone Number [facility] [address] [place] [address] * RA QUANTITATIVE (02/28/2024 6:13 PM CDT) Pathologist [facility] RHEUMATOID FACTOR,QUANT <10.00 <14.00 IU/mL 02/29/2024 3:39 PM CDT [facility] Blood BLOOD SPECIMEN / Unknown Extra Tube / Unknown 02/28/2024 6:13 PM CDT 02/28/2024 6:19 PM CDT Ann Morales MD [facility] [address] [place] [address], * (ABNORMAL) CBC W PLT NO DIFF (02/28/2024 6:13 PM CDT) Pathologist [facility] WHITE BLOOD COUNT 6.6 4.5 - 11.0 thou/cu mm 02/28/2024 7:[address] [facility] RED BLOOD COUNT 4.37 4.00 - 5.20 mil/cu mm 02/28/2024 7:[address] [facility] HEMOGLOBIN 12.2 12.0 - 16.0 g/dL 02/28/2024 7:[address] [facility] HEMATOCRIT 37.4 33.0 - 51.0 % 02/28/2024 7:[address] [facility] MCV 86 80 - 100 fL 02/28/2024 7:[address] [facility] MCH 27.9 26.0 - 34.0 pg 02/28/2024 7:[address] [facility] MCHC 32.6 32.0 - 36.0 g/dL 02/28/2024 7:[address] [facility] RDW 13.6 11.5 - 15.5 % 02/28/2024 7:[address] [facility] PLATELET COUNT 211 140 - 440 thou/cu mm 02/28/2024 7:[address] [facility] MPV 11.5(H) 6.5 - 11.0 fL 02/28/2024 7:06 PM CDT [facility] Blood BLOOD SPECIMEN / Unknown Venipuncture / Unknown 02/28/2024 6:13 PM CDT 02/28/2024 6:18 PM CDT Ann Morales MD HEMATOLOGY Performing Organization Address City/[facility]/ZIP Co de Phone Number [facility] [address] [place] [address] * APTT (02/28/2024 6:13 PM CDT) APTT 34 28 - 36 sec 02/28/2024 6:29 PM CDT [facility] Blood BLOOD SPECIMEN / Unknown Venipuncture / Unknown 02/28/2024 6:13 PM CDT 02/28/2024 6:18 PM CDT Narrative [facility] - 02/28/2024 6:29 PM CDT Therapeutic Range: 57-87 seconds Ann Morales MD HEMATOLOGY Performing Organization Address City/[facility]/ZIP Co de Phone Number [facility] [address] [place] [address] * PROTIME-INR (02/28/2024 6:13 PM CDT) INR 1.1 <1.3 02/28/2024 6:29 PM CDT [facility] PROTIME 11.8 10.3 - 12.3 sec 02/28/2024 6:29 PM CDT [facility] Blood BLOOD SPECIMEN / Unknown Venipuncture / Unknown 02/28/2024 6:13 PM CDT 02/28/2024 6:18 PM CDT Narrative [facility] - 02/28/2024 6:29 PM CDT ?Therapeutic Range 2.0-3.0 for most anticoagulated patients 2.5-3.5 or 4.0 for high risk patients The INR is only used for patients on stable oral anticoagulant therapy. It makes no significant contribution to the diagnosis or treatment of patients whose Protime is prolonged for other reasons. INR results are increased when heparin levels exceed 1.0 U/mL, which corresponds to an aPTT >125 seconds if the patient is on UFH. Ann Morales MD HEMATOLOGY [facility] [address] [place] [phone] * PRO-BNP (02/28/2024 6:13 PM CDT) PRO-BNP 65 <125 pg/mL 02/28/2024 6:54 PM CDT [facility] Blood BLOOD SPECIMEN / Unknown Venipuncture / Unknown 02/28/2024 6:13 PM CDT 02/28/2024 6:18 PM CDT [facility] - 02/28/2024 6:54 PM CDT The following cut-points have been suggested for the use of proBNP for the diagnostic evaluation of heart failure (HF) in patient with acute dyspnea. Patients with eGFR >= 60 Diagnosis (rule in CHF) ? <50 Years Old ?450 pg/mL 50 - 75 Years Old ?900 pg/mL >75 Years Old ? 1800 pg/mL Exclusion (rule out CHF) Age Independent ?300 pg/mL A cutoff of 1200 pg/mL for patients with an eGFR <60 yields a diagnostic sensitivity of 89% and specificity of 72% for acute congestive heart failure. ? Ann Morales MD SEND OUTS [facility] [address] [place] [address] * (ABNORMAL) BASIC METABOLIC PANEL (02/28/2024 6:13 PM CDT) SODIUM 139 136 - 145 mmol/L 02/28/2024 6:[address] [facility] POTASSIUM 3.8 3.5 - 5.1 mmol/L 02/28/2024 6:[address] [facility] CHLORIDE 106 98 - 107 mmol/L 02/28/2024 6:[address] [facility] CO2,TOTAL 25 22 - 29 mmol/L 02/28/2024 6:[address] [facility] ANION GAP 8 5 - 18 02/28/2024 6:[address] [facility] GLUCOSE 114(H) 70 - 99 mg/dL 02/28/2024 6:[address] [facility] CALCIUM 8.9 8.6 - 10.0 mg/dL 02/28/2024 6:[address] [facility] BUN 8 6 - 20 mg/dL 02/28/2024 6:[address] [facility] CREATININE 0.54 0.50 - 0.90 mg/dL 02/28/2024 6:[address] [facility] BUN/CREAT RATIO 15 10 - 20 6:[address] [facility] eGFR >90 >90 mL/min/1.7 3m2 02/28/2024 6:[address] [facility] Comment:As of 2021, eG FR is calculated by the CKD-EPI creatinine equation without race adjustment. ??eGFR can be influenced by muscle mass, exercise, and diet. ??The reported eGFR is an estimation only and is only applicable if the renal function is stable. Blood BLOOD SPECIMEN / Unknown Venipuncture / Unknown 02/28/2024 6:13 PM CDT 02/28/2024 6:18 PM CDT Ann Morales MD CHEMISTRY [facility] [address] [place] [address] from Last 3 Months Advance Directives * Full Code (Latest Code Status on File) Date Activated Date Inactivated Comments 08/19/2015 4:13 PM 08/25/2015 3:19 PM Care Teams Project Internship Relationship Specialty Start Date End Date [facility] - [address] [place] [phone] PCP - General 02/28/24
== END 2024-04-14 14:13 | disposition home or self-care (01) ==
LOC: NFLDREF 04-15 11:12
PROVIDERS: PCP Family Medicine; Referring Provider Family Medicine; Visit Provider Family Medicine
DX: R39.9 Unspecified symptoms and signs involving the genitourinary system (principal); R82.998 Other abnormal findings in urine; N39.0 Urinary tract infection, site not specified; R31.29 Other microscopic hematuria; F17.200 Nicotine dependence, unspecified, uncomplicated
CPT/HCPCS: 87086; 87186

== ENCOUNTER 2024-04-22 13:02 | Outpatient (CLI) | payer MEDICARE, MEDICAID, SELFPAY ==
--- NOTE | 2024-04-22 13:00 | CRLHL7_ITS ---
For Patients: As a result of the Century Cures Act, medical imaging exams and procedure reports are released immediately into your electronic medical record. You may view this report before your referring provider. If you have questions, please contact your health care provider. INDICATION: Hematuria. TECHNIQUE: CT abdomen and pelvis urogram without and with 100 cc Omnipaque 350 IV contrast. Contrast images were obtained in the nephrographic and delayed phases. COMPARISON: 06/10/2021 FINDINGS: KIDNEYS: The unenhanced images demonstrate no kidney or ureteral stones. The kidneys are normal in caliber and demonstrate normal uptake and excretion of IV contrast. No masses. The renal collecting systems and ureters are symmetrical, normal in caliber, and without evidence of mass or filling defect. URINARY BLADDER: The urinary bladder is normal in caliber and without evidence of mass, wall thickening, or inflammation. OTHER: Mild dependent atelectasis in both lung bases. No pleural effusion. Liver unremarkable. Gallbladder absent. Normal spleen. Pancreas within normal limits. Normal adrenal glands. Incidental retroaortic left renal vein. No enlarged lymph nodes. Uterus unremarkable. Bilateral Essure implants. Appendix normal. No bowel obstruction or free air. No free fluid or abscess. Postop changes L5-S1 posterior fusion with fusion across the L5-S1 disc space. No fracture. IMPRESSION: 1. Unremarkable CT urogram. No findings to explain hematuria. 2. No other acute or significant findings. Please note that all CT scans at this facility use dose modulation, iterative reconstruction, and/or weight-based dosing when appropriate to reduce radiation dose to as low as reasonably achievable. Dictated by Timi Larose MD @ 04/24/2024 10:09:51 AM (Electronically Signed)
--- OUTSIDE RECORDS SUMMARY | 2024-04-22 13:04 | XMS_ITS | Encounter Summary ---
Author Organization [facility] Address [address] [place] [address] Care Team Providers Care Outcome Analyst Name Role Phone Laverne Lopez APRN, C.N.P. Primary Care Provi bandar Reason for Referral * Outpatient (Routine) - Authorized Specialty Diagnoses / Procedures Referred By Contac t Referred To Contact Laverne Lopez APRN, C.N.P. [address] [place] [address] [facility] Region Referral ID Status Reason Start Date Expiration Date V isits Requested Visits Authorized [id number] Authorized 01/21/2024 07/22/2025 1 1 Scheduling Instructions Nurse AWV Do not schedule prior to due date to ensure insurance coverage Visit: Medicare Annual Wellness Never done. Encounter Details Date Type Department Care Team (Late st Contact Info) Description 01/21/2024 Orders Only [facility] PCP [facility] MNT Laverne Lopez APRN, C.N.P. [address] [place] [address] Social History Tobacco Use Types [...] Never 05/28/2020 How often do you attend episcopal or methodist serv ices? 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 Gender Identity Female 03/10/2020 10:50 PM CDT Sexual Orientation Straight 03/10/2020 10 :50 PM CDT documented as of this encounter Plan of Treatment Scheduled Referrals Name Type Priority Associated Diagnoses Orde r Schedule Primary Care nurse visit (clinic) - [facility] Region; Medicare Annual Wellness Outpatient Referral Routine Expected: 02/18/2024, Expires: 07/19/2024 documented as of this encounter Visit Diagnoses Not on filedocumented in this encounter Additional Health Concerns Assessment Noted Time PHQ-9 Depression Total Score: 8 05/14/20 19 9:10 AM CDT documented as of this encounter Care Teams Outcome Analyst Relationship Specialty Start Date End Date Laverne Lopez APRN, C.N.P. [address] [place] [phone] PCP - General 12/01/20 documented as of this encounter
--- OUTSIDE RECORDS SUMMARY | 2024-04-22 13:04 | XMS_ITS | Clinical Summary ---
Author Organization [facility] Address [address] [place] [address] Care Team Providers Care Circuit Tester Name Role Phone Laverne Lopez APRN C.N.P. Primary Care Provi bandar Source Comments Patient records contain information from all sites at [facility]. For routine questions regarding patient records, call [phone] during business hours, M-F 8:00 AM - 5:00 PM Central Time. Record requests for emergency care only can be directed to [phone] at any time.[facility] Allergies Active Allergy Reactions Criticality Noted Date [...] BMI 40-44 posted on 10/03 at 10:03 DIGITAL MEDIA ANALYST. 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 (04/20/2019): Overview: 9 P trisomy Gene FRDA2 Diagnosed 2008 [facility] Deficiency Vitamin D 11/17/2013 Seizure Single [...] Department Care Team Description 04/15/2024 Community Orders [facility] [address] [place] [address] Matt Dugan M.D. Microhematuria (Primary Dx); Nicotine Dependence Unspecified 01/21/2024 Orders Only [facility] MNT Laverne Lopez APRN, C.N.P. from Last 3 Months Immunizations Name Administration [...] Never 05/28/2020 How often do you attend oriental orthodox or gnosticist serv ices? Never 05/28/2020 Do you belong to any clubs o r organizations such as oriental orthodox groups, unions, fraternal or athletic groups, or [...] Answer Date Recorded PHQ-2 Score 2 03/10/2020 [employer] of Occupat ional [facility] - Occupational Stress Questionnaire Answer [...] Sex Assigned at Female 09/16/2022 11:32 PM DIGITAL MEDIA ANALYST Gender Identity Female 03/10/2020 10:50 PM CDT [...] this topic Medical Devices Implanted Type Area Textile Machine Operator Device Identifier Shelf Expiration Date Model / Serial / Lot Legacy Screw Set Ti Breakoff - Ferrara [id number] Implanted:Qty: 4 on 10/11/2009 Spine Implant Medtronic Description:Device Manufactu rer - Medtronic Sofamor Danek. Device Status Text - SPINE [id number]. Legacy Leonardo Ti 6.35 X 50 - [place] [id number] Implanted:Qty: 2 on 10/11/2009 Spine Implant Medtronic Description:Device Manufactu rer - Medtronic Sofamor Danek. Device Status Text - SPINE [id number]. Screw 6.35 Multi-Axial 6.5 X 35mm Ti - [place] [id number] Implanted:Qty: 2 on 10/11/2009 Spine Implant Medtronic Description:Device Manufactu rer - Medtronic Sofamor Danek. Device Status Text - SPINE [id number]. Screw 6.35 Multi-Axial 6.5 X 40mm Ti - [place] [id number] Implanted:Qty: 2 on 10/11/2009 Spine Implant Medtronic Description:Device Manufactu rer - Medtronic Sofamor Danek. Device Status Text - SPINE [id number]. Procedures Procedure Name Priority Date/Time Associated Diagnosis Comments COMPREHENSIVE METABOLIC PANEL, S/P STAT 02/24/2023 12:46 PM CDT LIPID PANEL, S Routine 03/06/2017 8:33 AM CDT PATHOLOGY CLINICAL TEAM LEAD CYTOLOGY Routine 5 12:00 AM DIGITAL MEDIA ANALYST HIV-1/-2 AG AND AB SCREEN Routine 11/03/2014 12:18 PM DIGITAL MEDIA ANALYST from Last 3 Months or Most Recently [...] for FH and FDB is available through [employer] software: FH/ADH Genetic Reflex Panel (test ADHP). Acquired (non-genetic) causes of markedly increased LDL cholesterol include cholestatic liver disease due to the presence of LpX. If a genetic form of hypercholesterolemia is suspected, family studies including biochemical testing for lipids (total cholesterol,triglycerides, LDL cholesterol and HDL cholesterol) are recommended. ??Please contact the laboratory at or the on-line test catalog at [employer] for information about how to order these tests or to speak with a genetic counselor. Further interpretation would require clinical information. Total Cholesterol/HDL Ratio 4.00 POWERCHART HXLDL/HDL 2 POWERCHART Blood 03/06/2017 8:33 AM CDT Nan Cui APRN, C.N.P., RFreyaN. LAB BL OOD ADD-ON POWERCHART * Pathology CLINICAL TEAM LEAD Cytology (07/19/2015 12:00 AM DIGITAL MEDIA ANALYST) 07/19/2015 Narrative [facility] - 07/29/2015 10:16 AM DIGITAL MEDIA ANALYST [facility] [address] [facility] [address] [place] [address] ??[phone] Patient Name: BELLA HOFFMAN Collected: 07/19/2015 Address: City/State/Zip: [address] [place] [address] ??[phone] Received: Reported: 07/20/2015 07/29/2015 Soc. Sec. #: ?/Age/Sex 1980 (Age: 34) ??F Physician(s): KATE CUI CNP Copy To: ? [facility] ??[id number] [address] [facility], ??[place] ??[address] CYTOPATHOLOGY CLINICAL TEAM LEAD REPORT FINAL CYTOLOGIC DIAGNOSIS Pap Smear - ThinPrep with HPV: NEGATIVE FOR INTRAEPITHELIAL LESION OR MALIGNANCY REACTIVE/REPARATIVE CHANGES. ENDOCERVICAL CELLS/COMPONENT PRESENT. SATISFACTORY SPECIMEN FOR EVALUATION. ??This specimen required a physician interpretation under CLIA 1987 ?? Electronically Signed Out By [facility]/07/29/2015 ORIN BREAUX M.D. AM Anish BARTH(ASCP) The Pap test is a screening procedure [...] ? Pap Test PreservCyt Solution HPV by Training Analyst-Mediated Amplification (TMA) for E6/E7 viral messenger RNA [...] TYPING REQUESTED Nan Cui APRN, C.N.P., R.N. SEEMA Garcia COPATH ORDERABLES [facility] * HIV-1/-2 Ag and Ab Screen (11/03/2014 12:18 PM DIGITAL MEDIA ANALYST) HIV-1/-2 Antibody Negative Negative POWERCHART Comment: Negative result does not rule out HIV infection. If acute HIV infection is suspected in a high-risk individual, submit plasma specimen for HIV-1 RNA quantification test (HIVQU) and/or HIV-2 DNA/RNA test (FHV2Q). Test Performed by: [place] [address] Knitting Supervisor: Ari Enriquez II, M.D., Ph.D. Blood 11/03/2014 12:1 8 PM DIGITAL MEDIA ANALYST Mayra Benavidez M.D. LAB MICROBIOLOGY - BLOOD ORDERABLES POWERCHART from Last 3 Months or Most Recently Relevant to Health Maintenance Care Teams Circuit Tester Relationship Specialty Start Date End Date Laverne Lopez APRN, C.N.P. [address] [place] [address] PCP - General 12/01/20
--- OUTSIDE RECORDS SUMMARY | 2024-04-22 13:04 | XMS_ITS | Clinical Summary ---
Author Organization [employer] [facility] Address [place], [place] [address] Care Team Providers Care Hvac Project Manager Name Role Phone [facility] Allergies Active [...] 9 P trisomy Gene FRDA2 Diagnosed 2008 [facility] Vitamin D deficiency 11/17/2013 Major depression [...] CDT - 02/28/2024 7:50 PM CDT Emergency [address] [address] Ann Morales MD Bilateral hand swelling (Primary [...] None Seen /HPF 02/28/2024 7:24 PM T [facility] WBC 0-2 0-2, 3-5, None Seen /HPF 02/28/2024 7:24 PM T [facility] BACTERIA Many(A) None Seen, Rare, Few Bacteria/ HPF 02/28/2024 7:24 PM T [facility] EPITHELIAL CELLS Few None Seen, Few Epi/HPF 02/28/2024 7:24 PM T [facility] AMORPHOUS Present(A) (none) 02/28/2024 7:24 PM [facility] Urine URINE SPECIMEN / Unknown Non-Blood / Unknown 02/28/2024 6:59 PM CDT 02/28/2024 7:03 PM CDT Ann Morales MD URINE Performing Organization Address [facility] Co de Phone Number [facility] [address] [place] [phone] * (ABNORMAL) UA W/ SEDIMENT EXAM REFLEXED PER CRITERIA (02/28/2024 6:59 PM CDT) COLOR Yellow Yellow Color 02/28/2024 7:13 PM T [facility] CLARITY Slightly Cloudy(A) Clear Clarity 02/28/2024 7:13 PM [facility] SPECIFIC GRAVITY,URINE 1.025 1.010, 1.015, 1.020, 1.025 02/28/2024 7:13 PM [facility] PH,URINE 7.5 6.0, 7.0, 8.0, 5.5, 6.5, 7.5, 8.5 02/28/2024 7:13 PM [facility] UROBILINOGEN, QUALITATIVE Normal Normal EU/dl 02/28/2024 7:13 PM [facility] PROTEIN, URINE Negative Negative mg/dL 02/28/2024 7:13 PM [facility] GLUCOSE, URINE Negative Negative mg/dL 02/28/2024 7:13 PM CDT [facility] KETONES,URINE Negative Negative mg/dL 02/28/2024 7:13 PM CDT [facility] BILIRUBIN,URI NE Negative Negative 02/28/2024 7:13 PM CDT [facility] OCCULT BLOOD,URINE Trace(A) Negative 02/28/2024 7:13 PM CDT [facility] NITRITE Positive(A) Negative 02/28/2024 7:13 PM CDT [facility] LEUKOCYTE ESTERASE Negative Negative 02/28/2024 7:13 PM CDT [facility] Urine URINE SPECIMEN / Unknown Non-Blood / Unknown 02/28/2024 6:59 PM CDT 02/28/2024 7:03 PM CDT Ann Morales MD URINE [facility] [address] [place] [address] * ANTINUCLEAR ANTIBODY BY IFA (02/28/2024 6:13 PM CDT) ANTINUCLEAR ANTIBODY (ABDULAZIZ) Negative Negative 03/02/2024 12:24 PM CDT [facility] Blood BLOOD SPECIMEN / Unknown Extra Tube / Unknown 02/28/2024 6:13 PM CDT 02/28/2024 6:19 PM CDT Narrative [facility] - 03/02/2024 12:24 PM CDT Method: ABDULAZIZ screen performed by (IFA) on HEP-2 substrate, IgG Ann Morales MD CHEMISTRY [facility] [address] [place] [address], * RED CELL MORPHOLOGY (02/28/2024 6:13 PM CDT) RBC COMMENT RBC morphology appears normal RBC morphology appears normal, RBC morphology within normal limits for newborns. 02/28/2024 7:06 PM CDT [facility] LARGE PLATELETS Present 02/28/2024 7:06 PM CDT [facility] Blood BLOOD SPECIMEN / Unknown Venipuncture / Unknown 02/28/2024 6:13 PM CDT 02/28/2024 6:18 PM CDT Ann Morales MD HEMATOLOGY Performing Organization Address City/[facility]/ZIP Co de Phone Number [facility] [address] [place] [address] * PLATELET ESTIMATE (02/28/2024 6:13 PM CDT) PLATELET ESTIMATE Adequate Adequate, No estimate 02/28/2024 7:06 PM CDT [facility] Blood BLOOD SPECIMEN / Unknown Venipuncture / Unknown 02/28/2024 6:13 PM CDT 02/28/2024 6:18 PM CDT Ann Morales MD HEMATOLOGY Performing Organization Address [facility]/ZIP Co de Phone Number [facility] [address] [place] [address] * EXTRA TUBE ROSE (02/28/2024 6:13 PM CDT) Blood BLOOD SPECIMEN / Unknown Extra Tube / Unknown 02/28/2024 6:13 PM CDT 02/28/2024 6:19 PM CDT Doctor Unknown LABORATORY Performing Organization Address City/[facility]/ZIP Co de Phone Number [facility] [address] [place] [address] * EXTRA TUBE GOLD/SST (02/28/2024 6:13 PM CDT) Blood BLOOD SPECIMEN / Unknown Extra Tube / Unknown 02/28/2024 6:13 PM CDT 02/28/2024 6:19 PM CDT Doctor Unknown LABORATORY Performing Organization Address City/[facility]/ZIP Co de Phone Number [facility] [address] [place] [address] * RA QUANTITATIVE (02/28/2024 6:13 PM CDT) Pathologist [facility] RHEUMATOID FACTOR,QUANT <10.00 <14.00 IU/mL 02/29/2024 3:39 PM CDT [facility] Blood BLOOD SPECIMEN / Unknown Extra Tube / Unknown 02/28/2024 6:13 PM CDT 02/28/2024 6:19 PM CDT Ann Morales MD [facility] [address] [place] [address], * (ABNORMAL) CBC W PLT NO DIFF (02/28/2024 6:13 PM CDT) Pathologist [facility] WHITE BLOOD COUNT 6.6 4.5 - 11.0 thou/cu mm 02/28/2024 7:06 PM [facility] RED BLOOD COUNT 4.37 4.00 - 5.20 mil/cu mm 02/28/2024 7:06 PM [facility] HEMOGLOBIN 12.2 12.0 - 16.0 g/dL 02/28/2024 7:06 PM [facility] HEMATOCRIT 37.4 33.0 - 51.0 % 02/28/2024 7:06 PM [facility] MCV 86 80 - 100 fL 02/28/2024 7:06 PM [facility] MCH 27.9 26.0 - 34.0 pg 02/28/2024 7:06 PM [facility] MCHC 32.6 32.0 - 36.0 g/dL 02/28/2024 7:06 PM [facility] RDW 13.6 11.5 - 15.5 % 02/28/2024 7:06 PM [facility] PLATELET COUNT 211 140 - 440 thou/cu mm 02/28/2024 7:06 PM [facility] MPV 11.5(H) 6.5 - 11.0 fL 02/28/2024 7:06 PM CDT [facility] Blood BLOOD SPECIMEN / Unknown Venipuncture / Unknown 02/28/2024 6:13 PM CDT 02/28/2024 6:18 PM CDT Ann Morales MD HEMATOLOGY Performing Organization Address City/[facility]/ZIP Co de Phone Number [facility] [address] [place] [address] * APTT (02/28/2024 6:13 PM CDT) APTT 34 28 - 36 sec 02/28/2024 6:29 PM CDT [facility] Blood BLOOD SPECIMEN / Unknown Venipuncture / Unknown 02/28/2024 6:13 PM CDT 02/28/2024 6:18 PM CDT Narrative [facility] - 02/28/2024 6:29 PM CDT Therapeutic Range: 57-87 seconds Ann Morales MD HEMATOLOGY Performing Organization Address City/[facility]/ZIP Co de Phone Number [facility] [address] [place] [address] * PROTIME-INR (02/28/2024 6:13 PM CDT) INR 1.1 <1.3 02/28/2024 6:29 PM CDT [facility] PROTIME 11.8 10.3 - 12.3 sec 02/28/2024 6:29 PM CDT [facility] Blood BLOOD SPECIMEN / Unknown Venipuncture / Unknown 02/28/2024 6:13 PM CDT 02/28/2024 6:18 PM CDT Narrative [facility] - 02/28/2024 6:29 PM CDT ?Therapeutic [...] is on UFH. Ann Morales MD HEMATOLOGY [facility] [address] [place] [id number] * PRO-BNP (02/28/2024 6:13 PM CDT) PRO-BNP 65 <125 pg/mL 02/28/2024 6:54 PM CDT [facility] Blood BLOOD SPECIMEN / Unknown Venipuncture / Unknown 02/28/2024 6:13 PM CDT 02/28/2024 6:18 PM CDT [facility] - 02/28/2024 6:54 PM CDT The [...] for acute congestive heart failure. ? Ann Moralse MD SEND OUTS [facility] [address] [place] [address] * (ABNORMAL) BASIC METABOLIC PANEL (02/28/2024 6:13 PM CDT) SODIUM 139 136 - 145 mmol/L 02/28/2024 6:54 PM [facility] POTASSIUM 3.8 3.5 - 5.1 mmol/L 02/28/2024 6:54 PM [facility] CHLORIDE 106 98 - 107 mmol/L 02/28/2024 6:54 PM [facility] CO2,TOTAL 25 22 - 29 mmol/L 02/28/2024 6:54 PM [facility] ANION GAP 8 5 - 18 02/28/2024 6:54 PM [facility] GLUCOSE 114(H) 70 - 99 mg/dL 02/28/2024 6:54 PM [facility] CALCIUM 8.9 8.6 - 10.0 mg/dL 02/28/2024 6:54 PM [facility] BUN 8 6 - 20 mg/dL 02/28/2024 6:54 PM [facility] CREATININE 0.54 0.50 - 0.90 mg/dL 02/28/2024 6:54 PM [facility] BUN/CREAT RATIO 15 10 - 20 6:54 PM [facility] eGFR >90 >90 mL/min/1.7 3m2 02/28/2024 6:54 PM [facility] Comment:As of 2021, eG FR is calculated by the CKD-EPI creatinine equation without race adjustment. ??eGFR can be influenced by muscle mass, exercise, and diet. ??The reported eGFR is an estimation only and is only applicable if the renal function is stable. Blood BLOOD SPECIMEN / Unknown Venipuncture / Unknown 02/28/2024 6:13 PM CDT 02/28/2024 6:18 PM CDT Ann Morales MD CHEMISTRY [facility] [address] [place] [address] from Last 3 Months Advance Directives * Full Code (Latest Code Status on File) Date Activated Date Inactivated Comments 08/19/2015 4:13 PM 08/25/2015 3:19 PM Care Teams Hvac Project Manager Relationship Specialty Start Date End Date [place] [facility] - [address] [place] [phone] PCP - General 02/28/24
--- OUTSIDE RECORDS SUMMARY | 2024-04-22 13:04 | XMS_ITS | Referral Summary ---
Author Organization [facility] Address [address] [place] [address] Care Team Providers Care Plant Nursery Worker Name Role Phone Laverne Lopez APRN, C.N.P. Primary Care Provi [facility] Source Comments Patient records contain information from all sites at [facility]. For routine questions regarding patient records, call [phone] during business hours, M-F 8:00 AM - 5:00 PM Central Time. Record requests for emergency care only can be directed to [phone] at any time.[facility] Encounters Date Type Department Care Team Description 04/15/2024 Community [facility] [address] [place] [address] Matt Dugan M.D. Microhematuria (Primary Dx); Nicotine Dependence Unspecified 01/21/2024 Orders Only [facility] MNT Laverne Lopez APRN, C.N.P. from Last 3 Months Allergies Active Allergy [...] BMI 40-44 posted on 10/03 at 10:03 AUTOMOTIVE HEAVY MECHANIC. 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 Never 05/28/2020 Do you belong to any clubs o r organizations such as pentecostal groups, unions, fraternal or athletic groups, or [...] Answer Date Recorded PHQ-2 Score 2 03/10/2020 [facility] of Occupat ional [facility] - Occupational Stress Questionnaire Answer Date Recorded [...] Sex Assigned at Female 09/16/2022 11:32 PM AUTOMOTIVE HEAVY MECHANIC Gender Identity Female 03/10/2020 10:50 PM CDT [...] on file Medical Devices Implanted Type Area County Historian Device Identifier Shelf Expiration Date Model / Serial / Lot Legacy Screw Set Ti Breakoff - [place] [id number] Implanted:Qty: 4 on 10/11/2009 Spine Implant Medtronic Description:Device Manufactu rer - Medtronic Sofamor [place]anek. Device Status Text - SPINE [id number]. Legacy Leonardo Ti 6.35 X 50 - [place] [id number] Implanted:Qty: 2 on 10/11/2009 Spine Implant Medtronic Description:Device Manufactu rer - Medtronic Sofamor [place]. Device Status Text - SPINE [id number]. Screw 6.35 Multi-Axial 6.5 X 35mm Ti - [place] [id number] Implanted:Qty: 2 on 10/11/2009 Spine Implant Medtronic Description:Device Manufactu rer - Medtronic Sofamor [place]k. Device Status Text - SPINE [id number]. Screw 6.35 Multi-Axial 6.5 X 40mm Ti - [place] [id number] Implanted:Qty: 2 on 10/11/2009 Spine Implant Medtronic Description:Device Manufactu rer - Medtronic Sofamor Danek. Device Status Text - SPINE [id number]. Procedures Procedure Name Priority Date/Time Associated Diagnosis Comments COMPREHENSIVE METABOLIC PANEL, S/P STAT 02/24/2023 12:46 PM CDT LIPID PANEL, S Routine 03/06/2017 8:33 AM CDT PATHOLOGY LEVERS LACE MACHINE OPERATOR CYTOLOGY Routine 5 12:00 AM AUTOMOTIVE HEAVY MECHANIC HIV-1/-2 AG AND AB SCREEN Routine 11/03/2014 12:18 PM AUTOMOTIVE HEAVY MECHANIC from Last 3 Months or Most Recently [...] for FH and FDB is available through [employer]: FH/ADH Genetic Reflex Panel (test ADHP). Acquired (non-genetic) causes of markedly increased LDL cholesterol include cholestatic liver disease due to the presence of LpX. If a genetic form of hypercholesterolemia is suspected, family studies including biochemical testing for lipids (total cholesterol,triglycerides, LDL cholesterol and HDL cholesterol) are recommended. ??Please contact the laboratory at or the on-line test catalog at [employer] for information about how to order these tests or to speak with a genetic counselor. Further interpretation would require clinical information. Total Cholesterol/HDL Ratio 4.00 POWERCHART HXLDL/HDL 2 POWERCHART Blood 03/06/2017 8:33 AM CDT Nan Cui APRN, C.N.P., R.N. LAB BL OOD ADD-ON POWERCHART * Pathology LEVERS LACE MACHINE OPERATOR Cytology (07/19/2015 12:00 AM AUTOMOTIVE HEAVY MECHANIC) 07/19/2015 Narrative [facility] - 07/29/2015 10:16 AM AUTOMOTIVE HEAVY MECHANIC [facility] in [address] [place] [address] ??[phone] Patient Name: BELLA HOFFMAN Collected: 07/19/2015 Address: [facility]/State/Zip: [address] [place] [address] ??[phone] Received: Reported: 07/20/2015 07/29/2015 Soc. Sec. #: ?/Age/Sex 1980 (Age: 34) ??F Physician(s): KATE CUI CNP Copy To: ? [facility] ??[id number] [address] [facility], ??[place] ??[address] CYTOPATHOLOGY LEVERS LACE MACHINE OPERATOR REPORT FINAL CYTOLOGIC DIAGNOSIS Pap Smear - ThinPrep with HPV: NEGATIVE FOR INTRAEPITHELIAL LESION OR MALIGNANCY REACTIVE/REPARATIVE CHANGES. ENDOCERVICAL CELLS/COMPONENT PRESENT. SATISFACTORY SPECIMEN FOR EVALUATION. ??This specimen required a physician interpretation under CLIA 1987 ?? Electronically Signed Out By [facility]/07/29/2015 ORIN BREAUX M.D. LORI Oconnell NE(ASCP) The Pap test is a screening procedure [...] Date Complete: ? 07/28/2015 ? By: ??MICHAEL Wawrzynaik CT(ASCP) Date Reported: ? 07/29/2015 INTERPRETATION: Test: Aptima High Risk HPV Result: NEGATIVE FOR HIGH RISK HPV Specimen Description: ThinPrep? ? ? Pap Test PreservCyt Solution HPV by [employer] Curator-Mediated Amplification (TMA) for E6/E7 viral messenger RNA [...] Clinical Conditions: HPV TYPING REQUESTED Nan Cui APRN C.N.P., R.N. LAB ELLIOTT Garcia COPATH ORDERABLES [facility] * HIV-1/-2 Ag and Ab Screen (11/03/2014 12:18 PM AUTOMOTIVE HEAVY MECHANIC) HIV-1/-2 Antibody Negative Negative POWERCHART Comment: Negative result does not rule out HIV infection. If acute HIV infection is suspected in a high-risk individual, submit plasma specimen for HIV-1 RNA quantification test (HIVQU) and/or HIV-2 DNA/RNA test (FHV2Q). Test Performed by: [place] [address] Gem Cutter: Ari Enriquez II, M.D., Ph.D. Blood 11/03/2014 12:1 8 PM AUTOMOTIVE HEAVY MECHANIC Mayra Benavidez M.D. LAB MICROBIOLOGY - BLOOD ORDERABLES POWERCHART from Last 3 Months or Most Recently Relevant to Health Maintenance Care Teams Plant Nursery Worker Relationship Specialty Start Date End Date Laverne Lopez APRN, C.N.P. [address] [place] [address] PCP - General 12/01/20
--- OUTSIDE RECORDS SUMMARY | 2024-04-22 13:04 | XMS_ITS | Referral Summary ---
Author Organization [facility] Address [address] [place] [address] Care Team Providers Care Grey Roll Man Name Role Phone Richard River MD Unavailable [phone] Allergies Active Allergy Reactions Criticality Noted [...] 145.2 kg (320 lb) 07/28/2020 1:12 PM PERFORMING ARTS TECHNICIANS Height 144.8 cm (4' 9) 07/28/2020 1:12 PM PERFORMING ARTS TECHNICIANS Body Mass Index 69.25 07/28/2020 1:12 PM PERFORMING ARTS TECHNICIANS Plan of Treatment Not on file Care Teams Grey Roll Man Relationship Specialty Start Date End Date Richard River MD 06/15/20
--- OUTSIDE RECORDS SUMMARY | 2024-04-22 13:04 | XMS_ITS | Encounter Summary ---
Author Organization [facility] Address [address] [place] [address] Care Team Providers Care Postie Name Role Phone Laverne Lopez APRN C.N.PFreya Primary Care [facility] Reason for Referral * Outpatient (Routine) - Authorized Specialty Diagnoses / Procedures Referred By Contac t Referred To Contact Urology Diagnoses Microhematuria Nicotine Dependence Unspecified Matt Dugan M.D. [address] [place] [address] [facility] Region Referral ID Status Reason Start Date Expiration Date V isits Requested Visits Authorized [id number] Authorized 04/15/2024 10/15/2025 1 1 Encounter Details Date Type Department Care Team (Latest Contact Info) Description 04/15/2024 [facility] [address] [place] [address] Matt Dugan M.D. [address] [place] [address] Microhematuria (Primary Dx); Nicotine Dependence [...] Never 05/28/2020 How often do you attend episcopalian or adventism serv ices? Never 05/28/2020 Do you belong to any clubs o r organizations such as episcopalian groups, unions, fraternal or athletic groups, or [...] Answer Date Recorded PHQ-2 Score 2 03/10/2020 [facility] - Occupational Stress [...] Sex Assigned at Female 09/16/2022 11:32 PM LABOR MEDIATOR Gender Identity Female 03/10/2020 10:50 PM CDT [...] documented as of this encounter Care Teams Postie Relationship Specialty Start Date End Date Laverne Lopez APRN, C.N.P. [address] [place] [address] PCP - General 12/01/20 documented as of this encounter
--- OUTSIDE RECORDS SUMMARY | 2024-04-22 13:04 | XMS_ITS | Clinical Summary ---
Author Organization [facility] Address [address] [place] [address] Care Team Providers Care Mailing Clerk Name Role Phone Richard River MD Unavailable [phone] Allergies Active Allergy Reactions Criticality Noted [...] 145.2 kg (320 lb) 07/28/2020 1:12 PM RESEARCH PHARMACIST Height 144.8 cm (4' 9) 07/28/2020 1:12 PM RESEARCH PHARMACIST Body Mass Index 69.25 07/28/2020 1:12 PM RESEARCH PHARMACIST Plan of Treatment Not on file Care Teams Mailing Clerk Relationship Specialty Start Date End Date Richard River MD 06/15/20
--- OUTSIDE RECORDS SUMMARY | 2024-04-22 13:04 | XMS_ITS ---
Author Organization [facility] Address [address] [place] [address] Care Team Providers Care Warehouse Receiver Name Role Phone Unavailable Unavailable Unavailable Surgery Details Not on file Complications Check Surgery Details section. Procedure Estimated Blood Loss Check Surgery Details section. Procedure Findings Check Surgery Details section. Procedure Specimens Taken Check Surgery Details section.
--- OUTSIDE RECORDS SUMMARY | 2024-04-22 13:04 | XMS_ITS | Encounter Summary ---
Author Organization [facility] Address [address] [place] [address] Care Team Providers Care Per Diem Physical Therapist Name Role Phone Laverne Lopez APRN C.NFreyaPFreya Primary Care [facility] Reason for Visit * Reason Comments Discharge Summary Encounter Details Date Type Department Care Team (Late st Contact Info) Description 01/14/2024 Documentation Department of Rehabilitation in [address] [place] [address] [place] PFreyaTFreya Discharge Summary Social History [...] Never 05/28/2020 How often do you attend roman catholic or taoist serv ices? Never 05/28/2020 Do you belong to any clubs o r organizations such as roman catholic groups, unions, fraternal or athletic groups, or [...] Answer Date Recorded PHQ-2 Score 2 03/10/2020 [facility] Occupat ional Health - Occupational [...] Sex Assigned at Female 09/16/2022 11:32 PM MICROBIOLOGY LAB ASSISTANT Gender Identity Female 03/10/2020 10:50 PM CDT [...] documented as of this encounter Care Teams Per Diem Physical Therapist Relationship Specialty Start Date End Date Laverne Lopez APRN, C.N.P. [address] [phone] PCP - General 12/01/20 documented as of this encounter
== END 2024-04-22 13:03 | disposition home or self-care (01) ==
LOC: CT 13:02
PROVIDERS: PCP Family Medicine; Visit Provider Family Medicine
DX: R31.29 Other microscopic hematuria (principal); F17.200 Nicotine dependence, unspecified, uncomplicated
CPT/HCPCS: 74178; Q9967

== ENCOUNTER 2024-05-26 13:13 | Outpatient (CLI) | payer MEDICARE, MEDICAID, SELFPAY ==
--- OUTSIDE RECORDS SUMMARY | 2024-05-30 16:13 | XMS_ITS | Clinical Summary ---
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 Encouraged cessation. 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 [address] [place] [address] Ann Morales MD Bilateral hand swelling (Primary [...] booster 06/21/2022 06/21/2012, 08/05/2001 COVID-19 vaccine series (3 - 2022- season) 2024 06/16/2021, 05/26/2021 Influenza for age 9-49 05/17/2024 [...] 0-2, None Seen /HPF 02/28/2024 7:24 PM CDT [facility] WBC 0-2 0-2, 3-5, None Seen /HPF 02/28/2024 7:24 PM T [facility] BACTERIA Many(A) None Seen, Rare, Few Bacteria/ HPF 02/28/2024 7:24 PM [facility] EPITHELIAL CELLS Few None Seen, Few Epi/HPF 02/28/2024 7:24 PM T [facility] AMORPHOUS Present(A) (none) 02/28/2024 7:24 PM T [facility] Urine URINE SPECIMEN / Unknown Non-Blood / Unknown 02/28/2024 6:59 PM CDT 02/28/2024 7:03 PM CDT Ann Morales MD URINE [facility] [address] [place] [address] * (ABNORMAL) UA W/ SEDIMENT EXAM REFLEXED PER CRITERIA (02/28/2024 6:59 PM CDT) COLOR Yellow Yellow Color 02/28/2024 7:13 PM T [facility] CLARITY Slightly Cloudy(A) Clear Clarity 02/28/2024 7:13 PM T [facility] SPECIFIC GRAVITY,URINE 1.025 1.010, 1.015, 1.020, 1.025 02/28/2024 7:13 PM [facility] PH,URINE 7.5 6.0, 7.0, 8.0, 5.5, 6.5, 7.5, 8.5 02/28/2024 7:13 PM T [facility] UROBILINOGEN, QUALITATIVE Normal Normal EU/dl 02/28/2024 7:13 PM [facility] PROTEIN, URINE Negative Negative mg/dL 02/28/2024 7:13 PM CDT [facility] GLUCOSE, URINE Negative Negative mg/dL 02/28/2024 7:13 PM CDT [facility] KETONES,URINE Negative Negative mg/dL 02/28/2024 7:13 PM CDT [facility] BILIRUBIN,URI NE Negative Negative 02/28/2024 7:13 PM CDT [facility] OCCULT BLOOD,URINE Trace(A) Negative 02/28/2024 7:13 PM CDT [facility] NITRITE Positive(A) Negative 02/28/2024 7:13 PM CDT [facility] LEUKOCYTE ESTERASE Negative Negative 02/28/2024 7:13 PM CDT [facility] Urine URINE SPECIMEN / Unknown Non-Blood / Unknown 02/28/2024 6:59 PM CDT 02/28/2024 7:03 PM CDT Ann Morales MD URINE [facility] [address] [place] [address] * ANTINUCLEAR ANTIBODY BY IFA (02/28/2024 6:13 PM CDT) ANTINUCLEAR ANTIBODY (ABDULAZIZ) Negative Negative 03/02/2024 12:24 PM CDT [facility] Blood BLOOD SPECIMEN / Unknown Extra Tube / Unknown 02/28/2024 6:13 PM CDT 02/28/2024 6:19 PM CDT Narrative [facility] - 03/02/2024 12:24 PM CDT Method: ABDULAZIZ screen performed by (IFA) on HEP-2 substrate, IgG Ann Morales MD [facility] [address] [place] [address], [place] * RED CELL MORPHOLOGY (02/28/2024 6:13 PM CDT) RBC COMMENT RBC morphology appears normal RBC morphology appears normal, RBC morphology within normal limits for newborns. 02/28/2024 7:06 PM CDT [facility] LARGE PLATELETS Present 02/28/2024 7:06 PM CDT [facility] Blood BLOOD SPECIMEN / Unknown Venipuncture / Unknown 02/28/2024 6:13 PM CDT 02/28/2024 6:18 PM CDT Ann Morales MD HEMATOLOGY Performing Organization Address City/[facility]/ZIP Co de Phone Number [facility] [address] [place] [address] * PLATELET ESTIMATE (02/28/2024 6:13 PM CDT) Pathologist [facility] PLATELET ESTIMATE Adequate Adequate, No estimate 02/28/2024 7:06 PM CDT [facility] Blood BLOOD SPECIMEN / Unknown Venipuncture / Unknown 02/28/2024 6:13 PM CDT 02/28/2024 6:18 PM CDT Ann Morales MD HEMATOLOGY Performing Organization Address City/[facility]/ZIP Co de Phone Number [facility] [address] [place] [address] * EXTRA TUBE ROSE (02/28/2024 6:13 PM CDT) Blood BLOOD SPECIMEN / Unknown Extra Tube / Unknown 02/28/2024 6:13 PM CDT 02/28/2024 6:19 PM CDT Doctor Edenilson LABORATORY [facility] [address] [place] [address] * EXTRA TUBE GOLD/SST (02/28/2024 6:13 PM CDT) Blood BLOOD SPECIMEN / Unknown Extra Tube / Unknown 02/28/2024 6:13 PM CDT 02/28/2024 6:19 PM CDT Doctor Unknown LABORATORY [facility] [address] [place] [address] * RA QUANTITATIVE (02/28/2024 6:13 PM CDT) Pathologist [facility] RHEUMATOID FACTOR,QUANT <10.00 <14.00 IU/mL 02/29/2024 3:39 PM CDT [facility] Blood BLOOD SPECIMEN / Unknown Extra Tube / Unknown 02/28/2024 6:13 PM CDT 02/28/2024 6:19 PM CDT Ann Morales MD SEND OUTS [facility] [address] [place] [address], * (ABNORMAL) CBC W PLT NO DIFF (02/28/2024 6:13 PM CDT) [facility] WHITE BLOOD COUNT 6.6 4.5 - 11.0 thou/cu mm 02/28/2024 7:06 PM [facility] RED BLOOD COUNT 4.37 4.00 - 5.20 mil/cu mm 02/28/2024 7:06 PM [facility] HEMOGLOBIN 12.2 12.0 - 16.0 g/dL 02/28/2024 7:06 PM [facility] HEMATOCRIT 37.4 33.0 - 51.0 % 02/28/2024 7:06 PM [facility] MCV 86 80 - 100 fL 02/28/2024 7:06 PM [facility] MCH 27.9 26.0 - 34.0 pg 02/28/2024 7:06 PM [facility] MCHC 32.6 32.0 - 36.0 g/dL 02/28/2024 7:06 PM [facility] RDW 13.6 11.5 - 15.5 % 02/28/2024 7:06 PM [facility] PLATELET COUNT 211 140 - 440 thou/cu mm 02/28/2024 7:06 PM CDT [facility] MPV 11.5(H) 6.5 - 11.0 fL 02/28/2024 7:06 PM CDT [facility] Blood BLOOD SPECIMEN / Unknown Venipuncture / Unknown 02/28/2024 6:13 PM CDT 02/28/2024 6:18 PM CDT Ann Morales MD HEMATOLOGY Performing Organization Address City/[facility]/ZIP Co de Phone Number [facility] [address] [place] [address] * APTT (02/28/2024 6:13 PM CDT) APTT 34 28 - 36 sec 02/28/2024 6:29 PM CDT [facility] Blood BLOOD SPECIMEN / Unknown Venipuncture / Unknown 02/28/2024 6:13 PM CDT 02/28/2024 6:18 PM CDT Narrative [facility] - 02/28/2024 6:29 PM CDT Therapeutic Range: 57-87 seconds Ann Morales MD HEMATOLOGY [facility] [address] [place] [address] * PROTIME-INR (02/28/2024 6:13 PM CDT) INR 1.1 <1.3 02/28/2024 6:29 PM CDT [facility] PROTIME 11.8 10.3 - 12.3 sec 02/28/2024 6:29 PM CDT [facility] Blood BLOOD SPECIMEN / Unknown Venipuncture / Unknown 02/28/2024 6:13 PM CDT 02/28/2024 6:18 PM CDT Narrative [facility] - 02/28/2024 6:29 PM CDT [...] is on UFH. Ann Morales MD HEMATOLOGY Performing Organization Address City/State/[facility] Co de Phone Number [facility] [address] [place] [address] * PRO-BNP (02/28/2024 6:13 PM CDT) [facility] PRO-BNP 65 <125 pg/mL 02/28/2024 6:54 PM CDT [facility] Blood BLOOD SPECIMEN / Unknown Venipuncture / Unknown 02/28/2024 6:13 PM CDT 02/28/2024 6:18 PM CDT [facility] - 02/28/2024 6:54 PM CDT [...] failure. ? Ann Morales MD SEND OUTS [facility] [address] [place] [address] * (ABNORMAL) BASIC METABOLIC PANEL (02/28/2024 6:13 PM CDT) SODIUM 139 136 - 145 mmol/L 02/28/2024 6:54 PM T [facility] POTASSIUM 3.8 3.5 - 5.1 mmol/L 02/28/2024 6:54 PM [facility] CHLORIDE 106 98 - 107 mmol/L 02/28/2024 6:54 PM [facility] CO2,TOTAL 25 22 - 29 mmol/L 02/28/2024 6:54 PM [facility] ANION GAP 8 5 - 18 02/28/2024 6:54 PM [facility] GLUCOSE 114(H) 70 - 99 mg/dL 02/28/2024 6:54 PM [facility] CALCIUM 8.9 8.6 - 10.0 mg/dL 02/28/2024 6:54 PM [facility] BUN 8 6 - 20 mg/dL 02/28/2024 6:54 PM [facility] CREATININE 0.54 0.50 - 0.90 mg/dL 02/28/2024 6:54 PM [facility] BUN/CREAT RATIO 15 10 - 20 6:54 PM [facility] eGFR >90 >90 mL/min/1.7 3m2 02/28/2024 6:54 PM [facility] Comment:As of 2021, eG FR is calculated by the CKD-EPI creatinine equation without race adjustment. ??eGFR can be influenced by muscle mass, exercise, and diet. ??The reported eGFR is an estimation only and is only applicable if the renal function is stable. Blood BLOOD SPECIMEN / Unknown Venipuncture / Unknown 02/28/2024 6:13 PM CDT 02/28/2024 6:18 PM CDT Ann Morales MD CHEMISTRY [facility] [address] [place] [address] from Last 3 Months Advance Directives * Full Code (Latest Code Status on File) Date Activated Date Inactivated Comments 08/19/2015 4:13 PM 08/25/2015 3:19 PM Care Teams Retail Key Holder Relationship Specialty Start Date End Date Ryan [facility] - [address] [phone] PCP - General 02/28/24
--- OUTSIDE RECORDS SUMMARY | 2024-05-30 16:13 | XMS_ITS | Referral Summary ---
Author Organization [facility] Address [address] [place] [address] Care Team Providers Care Electronic News Gathering Camera Person Name Role Phone Richard River MD Unavailable [phone] Allergies Active Allergy Reactions Criticality Noted [...] 145.2 kg (320 lb) 07/28/2020 1:12 PM BRANCH ASSOCIATE TELLER Height 144.8 cm (4' 9) 07/28/2020 1:12 PM BRANCH ASSOCIATE TELLER Body Mass Index 69.25 07/28/2020 1:12 PM BRANCH ASSOCIATE TELLER Plan of Treatment Not on file Care Teams Electronic News Gathering Camera Person Relationship Specialty Start Date End Date Richard River MD 06/15/20
--- OUTSIDE RECORDS SUMMARY | 2024-05-30 16:13 | XMS_ITS | Referral Summary ---
Author Organization [facility] Address [address] [place] [address] Care Team Providers Care Emergency Vehicle Driver Name Role Phone Laverne Lopez APRN, C.NFreyaPFreya Primary Care Provi bandar Source Comments Patient records contain information from all sites at [facility]. For routine questions regarding patient records, call [phone] during business hours, M-F 8:00 AM - 5:00 PM Central Time. Record requests for emergency care only can be directed to [phone] at any time.[facility] Encounters Date Type Department Care Team Description 04/15/2024 [facility] AND [facility] [address] [place] [address] Matt Dugan M.D. Microhematuria (Primary Dx); Nicotine Dependence Unspecified from Last 3 Months Allergies Active Allergy [...] BMI 40-44 posted on 10/03 at 10:03 HIGHER EDUCATION ADMINISTRATOR. 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 (04/20/2019): Overview: 9 P trisomy Gene FRDA2 Diagnosed 2008 [facility] Deficiency Vitamin D 11/17/2013 Seizure Single 12/02/2012 [...] Never 05/28/2020 How often do you attend samaritan or spiritism serv ices? Never 05/28/2020 Do you belong to any clubs o r organizations such as samaritan groups, unions, fraternal or athletic groups, or [...] Answer Date Recorded PHQ-2 Score 2 03/10/2020 [facility] [place] [facility] Occupat ional Health - Occupational Stress [...] Sex Assigned at Female 09/16/2022 11:32 PM HIGHER EDUCATION ADMINISTRATOR Gender Identity Female 03/10/2020 10:50 PM CDT [...] on file Medical Devices Implanted Type Area Web Page Designer Device Identifier Shelf Expiration Date Model / Serial / Lot Legacy Screw Set Ti Breakoff - [place] [id number] Implanted:Qty: 4 on 10/11/2009 Spine Implant Medtronic Description:Device Manufactu rer - Medtronic Sofamor [place]. Device Status Text - SPINE [id number]. Legacy Leonardo Ti 6.35 X 50 - [place] [id number] Implanted:Qty: 2 on 10/11/2009 Spine Implant Medtronic Description:Device Manufactu rer - Medtronic Sofamor [place]. Device Status Text - SPINE [id number]. Screw 6.35 Multi-Axial 6.5 X 35mm Ti - [place] [id number] Implanted:Qty: 2 on 10/11/2009 Spine Implant Medtronic Description:Device Manufactu rer - Medtronic Sofamor [place]. Device Status Text - SPINE [id number]. Screw 6.35 Multi-Axial 6.5 X 40mm Ti - [place] [id number] Implanted:Qty: 2 on 10/11/2009 Spine Implant Medtronic Description:Device Manufactu rer - Medtronic Sofamor [place]. Device Status Text - SPINE [id number]. Procedures Procedure Name Priority Date/Time Associated Diagnosis Comments OUTSIDE CT Routine 04/22/2024 1:35 PM CDT COMPREHENSIVE METABOLIC PANEL, S/P STAT 02/24/2023 12:46 PM CDT LIPID PANEL, S Routine 03/06/2017 8:33 AM CDT PATHOLOGY COMPUTER SYSTEMS INTEGRATOR CYTOLOGY Routine 5 12:00 AM HIGHER EDUCATION ADMINISTRATOR HIV-1/-2 AG AND AB SCREEN Routine 11/03/2014 12:18 PM HIGHER EDUCATION ADMINISTRATOR from Last 3 Months or Most Recently Relevant to Health Maintenance Results * CT UROGRAM-Outside CT (04/22/2024 1:35 PM CDT) 04/22/2024 1:32 PM CDT Narrative [facility] - 04/22/2024 3:05 PM CDT This order has been created and auto-finalized to support the import of outside images. If available, original interpretation can be found on the Media Tab in Chart Review, in Document Viewer, as an image in QREADS or as an Addendum. If a re-interpretation or overread is required please follow defined workflow.?? Provider Not In System IMG CT PROCEDURES JEANETTE NA * (ABNORMAL) Lipid Panel (03/06/2017 8:33 AM [...] for FH and FDB is available through [facility]: FH/ADH Genetic Reflex Panel (test ADHP). Acquired (non-genetic) causes of markedly increased LDL cholesterol include cholestatic liver disease due to the presence of LpX. If a genetic form of hypercholesterolemia is suspected, family studies including biochemical testing for lipids (total cholesterol,triglycerides, LDL cholesterol and HDL cholesterol) are recommended. ??Please contact the laboratory at or the on-line test catalog at [facility] for information about how to order these tests or to speak with a genetic counselor. Further interpretation would require clinical information. Total Cholesterol/HDL Ratio 4.00 POWERCHART HXLDL/HDL 2 POWERCHART Blood 03/06/2017 8:33 AM CDT Nan Cui APRN, C.N.P., R.N. LAB BL OOD ADD-ON Performing Organization Address City/[facility]/ZIP Co de Phone Number POWERCHART * Pathology COMPUTER SYSTEMS INTEGRATOR Cytology (07/19/2015 12:00 AM HIGHER EDUCATION ADMINISTRATOR) 07/19/2015 Narrative [facility] - 07/29/2015 10:16 AM HIGHER EDUCATION ADMINISTRATOR [facility] in [address] [place], [place] ??[phone] Patient Name: BELLA HOFFMAN Collected: 07/19/2015 Address: City/State/Zip: [address] [place] [address] ??[phone] Received: Reported: 07/20/2015 07/29/2015 Soc. Sec. #: ?/Age/Sex 1980 (Age: 34) ??F Physician(s): KATE CUI CNP Copy To: ? [facility] ??[phone] [place], ??[place] ??[address] CYTOPATHOLOGY COMPUTER SYSTEMS INTEGRATOR REPORT FINAL CYTOLOGIC DIAGNOSIS Pap Smear - ThinPrep with HPV: NEGATIVE FOR INTRAEPITHELIAL LESION OR MALIGNANCY REACTIVE/REPARATIVE CHANGES. ENDOCERVICAL CELLS/COMPONENT PRESENT. SATISFACTORY SPECIMEN FOR EVALUATION. ??This specimen required a physician interpretation under CLIA 1987 ?? Electronically Signed Out By [facility]/07/29/2015 ORIN BREAUX M.D. LORI BARTH(ASCP) The Pap test is a screening [...] ? Pap Test PreservCyt Solution HPV by Recreation Teacher-Mediated Amplification (TMA) for E6/E7 viral messenger RNA [...] C.N.P., R.N. LAB PA P COPATH ORDERABLES [facility] * HIV-1/-2 Ag and Ab Screen (11/03/2014 12:18 PM HIGHER EDUCATION ADMINISTRATOR) HIV-1/-2 Antibody Negative Negative POWERCHART Comment: Negative result does not rule out HIV infection. If acute HIV infection is suspected in a high-risk individual, submit plasma specimen for HIV-1 RNA quantification test (HIVQU) and/or HIV-2 DNA/RNA test (FHV2Q). Test Performed by: [place] [id number] Stove Mechanic: Ari Enriquez II, M.D., Ph.D. Blood 11/03/2014 12:1 8 PM HIGHER EDUCATION ADMINISTRATOR Mayra Benavidez M.D. LAB MICROBIOLOGY - BLOOD ORDERABLES POWERCHART from Last 3 Months or Most Recently Relevant to Health Maintenance Care Teams Emergency Vehicle Driver Relationship Specialty Start Date End Date Laverne Lopez APRN, C.N.P. [address] [place] [address] PCP - General 12/01/20
--- OUTSIDE RECORDS SUMMARY | 2024-05-30 16:13 | XMS_ITS | Clinical Summary ---
Author Organization [facility] Address [address] [place] [address] Care Team Providers Care Central Office Operator Supervisor Name Role Phone Richard River MD Unavailable [phone] Allergies Active Allergy Reactions Criticality Noted [...] 145.2 kg (320 lb) 07/28/2020 1:12 PM CONTINUITY MANAGER Height 144.8 cm (4' 9) 07/28/2020 1:12 PM CONTINUITY MANAGER Body Mass Index 69.25 07/28/2020 1:12 PM CONTINUITY MANAGER Plan of Treatment Not on file Care Teams Central Office Operator Supervisor Relationship Specialty Start Date End Date Richard River MD 06/15/20
--- OUTSIDE RECORDS SUMMARY | 2024-05-30 16:13 | XMS_ITS | Clinical Summary ---
Author Organization [facility] Address [address] [place] [address] Care Team Providers Care Director Of Design Name Role Phone Laverne Lopez APRN C.N.P. Primary Care Provi bandar Source Comments Patient records contain information from all sites at [facility]. For routine questions regarding patient records, call [phone] during business hours, M-F 8:00 AM - 5:00 PM Central Time. Record requests for emergency care only can be directed to [phone] at any time.[facility] Allergies Active Allergy Reactions Criticality Noted [...] BMI 40-44 posted on 10/03 at 10:03 TILE APPLICATOR. 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 (04/20/2019): Overview: 9 P trisomy Gene FRDA2 Diagnosed 2008 [facility] Deficiency Vitamin D 11/17/2013 Seizure [...] Date Type Department Care Team Description 04/15/2024 [facility] [address] [place] [address] Matt Dugan M.D. Microhematuria (Primary Dx); Nicotine Dependence Unspecified from Last 3 Months Immunizations Name Administration [...] How often do you attend buddhism or spiritism serv ices? Never 05/28/2020 Do [...] Answer Date Recorded PHQ-2 Score 2 03/10/2020 [facility] - Occupational Stress Questionnaire Answer Date [...] Sex Assigned at Female 09/16/2022 11:32 PM TILE APPLICATOR Gender Identity Female 03/10/2020 10:50 PM CDT [...] 1980 Hepatitis C Screening 1980 Mammogram 1981 Hepatitis B Vaccines (1 of 3 - 19+ 3-dose series) 2000 Cervical Cancer Screening 07/19/20202014, 07/23/2011, 06/02/2010 Lipid (Cholesterol) Screening 03/06/2022 03/06/2017, 07/27/2015 DTaP,Tdap,and Td Vaccines (3 - Td or Tdap) 06/21/2022 06/21/2012, 01/31/2009 Controlled Substance Agreement 02/24/2023 Controlled Substance Monitoring (PHQ-9) 02/24/2023 Controlled Substance Monitoring 02/24/2023 Opioid Risk Tool (ORT) 02/24/2023 PEG assessment for Opioid therapy 02/24/2023 Visit: Annual, age 65+ (or Medicare and <65) 09/13/2023 09/13/2022 Depression Screening (Annual PHQ-2) 09/16/2023 COVID-19 Vaccine ( season) 2024 06/16/2021, 05/26/2021 Influenza Vaccine (#1) 2024 07/05/2008 Glucose Test for Med Monitoring 02/27/2025 02/28/2024, 02/24/2023, 04/26/2022, Additional history exists HIV Screening Completed 11/03/2014 HPV Vaccines Aged Out No longer eligi ble based on patient's age to complete this topic Pneumococcal vaccine (0-64 years) Aged Out No longer eligible based on patient's age to complete this topic Medical Devices Implanted Type Area Paint Roller Cover Machine Setter Device Identifier Shelf Expiration Date Model / Serial / Lot Legacy Screw Set Ti Breakoff - [place] [id number] Implanted:Qty: 4 on 10/11/2009 Spine Implant Medtronic Description:Device Manufactu rer - Medtronic Sofamor Danek. Device Status Text - SPINE [id number]. Legacy Leonardo Ti 6.35 X 50 - [place] [id number] Implanted:Qty: 2 on 10/11/2009 Spine Implant Medtronic Description:Device Manufactu rer - Medtronic Sofamor Danek. Device Status Text - SPINE [id number]. Screw 6.35 Multi-Axial 6.5 X 35mm Ti - [place] [id number] Implanted:Qty: 2 on 10/11/2009 Spine Implant Medtronic Description:Device Manufactu rer - Medtronic Sofamor Danek. Device Status Text - SPINE [id number]. Screw 6.35 Multi-Axial 6.5 X 40mm Ti - [place] [id number] Implanted:Qty: 2 on 10/11/2009 Spine Implant Medtronic Description:Device Manufactu rer - Medtronic Sofamor Danek. Device Status Text - SPINE [id number]. Procedures Procedure Name Priority Date/Time Associated Diagnosis Comments OUTSIDE CT Routine 04/22/2024 1:35 PM CDT COMPREHENSIVE METABOLIC PANEL, S/P STAT 02/24/2023 12:46 PM CDT LIPID PANEL, S Routine 03/06/2017 8:33 AM CDT PATHOLOGY PERSONAL PROTECTION SPECIALIST CYTOLOGY Routine 5 12:00 AM TILE APPLICATOR HIV-1/-2 AG AND AB SCREEN Routine 11/03/2014 12:18 PM TILE APPLICATOR from Last 3 Months or Most Recently [...] Provider Not In System IMG CT PROCEDURES IIMS NA * (ABNORMAL) Lipid Panel (03/06/2017 8:33 [...] for FH and FDB is available through [facility]: FH/ADH Genetic Reflex Panel (test ADHP). Acquired (non-genetic) causes of markedly increased LDL cholesterol include cholestatic liver disease due to the presence of LpX. If a genetic form of hypercholesterolemia is suspected, family studies including biochemical testing for lipids (total cholesterol,triglycerides, LDL cholesterol and HDL cholesterol) are recommended. ??Please contact the laboratory at or the on-line test catalog at [employer] for information about how to order these tests or to speak with a genetic counselor. Further interpretation would require clinical information. Total Cholesterol/HDL Ratio 4.00 POWERCHART HXLDL/HDL 2 POWERCHART Blood 03/06/2017 8:33 AM CDT Nan Cui APRN, C.N.P., R.N. LAB BL OOD ADD-ON POWERCHART * Pathology PERSONAL PROTECTION SPECIALIST Cytology (07/19/2015 12:00 AM TILE APPLICATOR) 07/19/2015 Narrative [facility] - 07/29/2015 10:16 AM TILE APPLICATOR [facility] in [address] [place], [place] ??[phone] Patient Name: BELLA HOFFMAN Collected: 07/19/2015 Address: [facility]/State/Zip: [address] [place] [address] ??[phone] Received: Reported: 07/20/2015 07/29/2015 Soc. Sec. #: ?/Age/Sex 1980 (Age: 34) ??F Physician(s): KATE CUI CNP Copy To: ? [facility] ??[id number] [address] [facility], ??[place] ??[address] CYTOPATHOLOGY PERSONAL PROTECTION SPECIALIST REPORT FINAL CYTOLOGIC DIAGNOSIS Pap Smear - ThinPrep with HPV: NEGATIVE FOR INTRAEPITHELIAL LESION OR MALIGNANCY REACTIVE/REPARATIVE CHANGES. ENDOCERVICAL CELLS/COMPONENT PRESENT. SATISFACTORY SPECIMEN FOR EVALUATION. ??This specimen required a physician interpretation under CLIA 1987 ?? Electronically Signed Out By [facility]/07/29/2015 ORIN BREAUX M.D. [facility]) The Pap test is a screening procedure [...] ? Pap Test PreservCyt Solution HPV by Crozer-Mediated Amplification (TMA) for E6/E7 viral messenger RNA [...] Conditions: HPV TYPING REQUESTED Nan Hickman Lorena LUNDBERG, C.N.P., R.N. LAB ELLIOTT [place] ORDERABLES [facility] * HIV-1/-2 Ag and Ab Screen (11/03/2014 12:18 PM TILE APPLICATOR) HIV-1/-2 Antibody Negative Negative POWERCHART Comment: Negative result does not rule out HIV infection. If acute HIV infection is suspected in a high-risk individual, submit plasma specimen for HIV-1 RNA quantification test (HIVQU) and/or HIV-2 DNA/RNA test (FHV2Q). Test Performed by: [place] [address] Front Office Agent: Ari Enriquez II, M.D., Ph.D. Blood 11/03/2014 12:1 8 PM TILE APPLICATOR Mayra Benavidez M.D. LAB MICROBIOLOGY - BLOOD ORDERABLES POWERCHART from Last 3 Months or Most Recently Relevant to Health Maintenance Care Teams Director Of Design Relationship Specialty Start Date End Date Laverne Lopez APRN, C.N.P. [address] [place] [address] PCP - General 12/01/20
--- OUTSIDE RECORDS SUMMARY | 2024-05-30 16:13 | XMS_ITS ---
Author Organization [facility] Address [address] [place] [address] Care Team Providers Care Instrument Mechanic Name Role Phone Unavailable Unavailable Unavailable Surgery Details Not on file Complications Check Surgery Details section. Procedure Estimated Blood Loss Check Surgery Details section. Procedure Findings Check Surgery Details section. Procedure Specimens Taken Check Surgery Details section.
--- OUTSIDE RECORDS SUMMARY | 2024-05-30 16:13 | XMS_ITS | Encounter Summary ---
Author Organization [facility] Address [address] [place] [address] Care Team Providers Care Utilities Equipment Repairer Name Role Phone Laverne Lopez APRN C.N.PFreya Primary Care Provi [facility] Reason for Referral * Outpatient (Routine) - Authorized Specialty Diagnoses / Procedures Referred By Contac t Referred To Contact Urology Diagnoses Microhematuria Nicotine Dependence Unspecified Matt Dugan M.D. [address] [place] [address] [facility] Region Referral ID Status Reason Start Date Expiration Date V isits Requested Visits Authorized [id number] Authorized 04/15/2024 10/15/2025 1 1 Encounter Details Date Type Department Care Team (Latest Contact Info) Description 04/15/2024 [facility] [address] [place] [address] Matt Dugan M.D. [address] [place] [address] Microhematuria (Primary Dx); Nicotine Dependence [...] Never 05/28/2020 How often do you attend zoroastrianism or rastafarian serv ices? Never 05/28/2020 Do you belong to any clubs o r organizations such as zoroastrianism groups, unions, fraternal or athletic groups, or [...] Answer Date Recorded PHQ-2 Score 2 03/10/2020 [facility] [place] [facility] - Occupational Stress [...] Sex Assigned at Female 09/16/2022 11:32 PM SOCIAL SECURITY BENEFITS INTERVIEWER Gender Identity Female 03/10/2020 10:50 PM CDT [...] documented as of this encounter Care Teams Utilities Equipment Repairer Relationship Specialty Start Date End Date Laverne Lopez APRN, C.N.P. [address] [place] [address] PCP - General 12/01/20 documented as of this encounter
== END 2024-05-26 13:14 | disposition home or self-care (01) ==
LOC: NFLDREF 05-30 16:11
PROVIDERS: PCP Family Medicine; Referring Provider Family Medicine; Visit Provider Family Medicine
DX: N39.0 Urinary tract infection, site not specified (principal); E55.9 Vitamin D deficiency, unspecified; Z13.228 Encounter for screening for other metabolic disorders
CPT/HCPCS: 80048; 82306

== ENCOUNTER 2024-06-17 10:43 | Outpatient (CLI) | payer MEDICARE, MEDICAID, SELFPAY ==
--- OUTSIDE RECORDS SUMMARY | 2024-06-18 08:41 | XMS_ITS | Referral Summary ---
Author Organization [facility] Address [address] [place] [address] Care Team Providers Care Christmas Tree Grader Name Role Phone Richard River MD Unavailable [phone] Allergies Active Allergy Reactions Criticality Noted [...] 145.2 kg (320 lb) 07/28/2020 1:12 PM ADMIN SECRETARY Height 144.8 cm (4' 9) 07/28/2020 1:12 PM ADMIN SECRETARY Body Mass Index 69.25 07/28/2020 1:12 PM ADMIN SECRETARY Plan of Treatment Not on file Care Teams Christmas Tree Grader Relationship Specialty Start Date End Date Richard River MD 06/15/20
--- OUTSIDE RECORDS SUMMARY | 2024-06-18 08:41 | XMS_ITS | Clinical Summary ---
Author Organization [facility] Address [place], [place] [address] Care Team Providers Care Home Attendant Name Role Phone Marla [facility] - Primary Ca re Provider Allergies Active [...] 9 P trisomy Gene FRDA2 Diagnosed 2008 [facility] Vitamin D deficiency 11/17/2013 Major [...] Date Resolved Date Mood disorder 02/03/2013 03/31/2013 Immunizations Name Administration Dates Next Due Td [...] booster 06/21/2022 06/21/2012, 08/05/2001 COVID-19 vaccine series ( season) 2024 06/16/2021, 05/26/2021 Influenza for age 9-49 05/17/2024 Tdap Completed 06/21/2012 Pneumococcal series for age 6-64 Aged Out No longer eligible b ased on patient's age to complete this topic Advance Directives * Full Code (Latest Code Status on File) Date Activated Date Inactivated Comments 08/19/2015 4:13 PM 08/25/2015 3:19 PM Care Teams Home Attendant Relationship Specialty Start Date End Date Marla [facility] - [address] [place] [phone] PCP - General 02/28/24
--- OUTSIDE RECORDS SUMMARY | 2024-06-18 08:41 | XMS_ITS ---
Author Organization [facility] Address [address] [place] [address] Care Team Providers Care Accounting Auditor Name Role Phone Unavailable Unavailable Unavailable Surgery Details Not on file Complications Check Surgery Details section. Procedure Estimated Blood Loss Check Surgery Details section. Procedure Findings Check Surgery Details section. Procedure Specimens Taken Check Surgery Details section.
--- OUTSIDE RECORDS SUMMARY | 2024-06-18 08:41 | XMS_ITS | Referral Summary ---
Author Organization [facility] Address [address] [place] [address] Care Team Providers Care Router Operator Name Role Phone Laverne Lopez APRN, C.NFreyaPFreya Primary Care Provi bandar Source Comments Patient records contain information from all sites at [facility]. For routine questions regarding patient records, call [phone] during business hours, M-F 8:00 AM - 5:00 PM Central Time. Record requests for emergency care only can be directed to [phone] at any time.[facility] Encounters Date Type Department Care Team Description 06/09/2024 Clinical Communication Department of Sports Medicine in [place], [place] [address] [place] [phone] Prescheduling, Provider 04/15/2024 [facility] AND [address] [address] Matt Dugan M.D. Microhematuria (Primary Dx); Nicotine [...] BMI 40-44 posted on 10/03 at 10:03 LOAN SERVICING OFFICER. 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 (04/20/2019): Overview: 9 P trisomy Gene FRDA2 Diagn[facility] Deficiency Vitamin D 11/17/2013 Seizure Single [...] Never 05/28/2020 How often do you attend latter-day or mosque serv ices? Never 05/28/2020 Do you belong to any clubs o r organizations such as latter-day groups, unions, fraternal or athletic groups, or [...] Answer Date Recorded PHQ-2 Score 2 03/10/2020 [facility] - Occupational Stress Questionnaire Answer Date [...] Sex Assigned at Female 09/16/2022 11:32 PM LOAN SERVICING OFFICER Gender Identity Female 03/10/2020 10:50 PM CDT [...] 12/20/2023 11:32 AM CDT Plan of Treatment Upcoming Encounters Date Type Department Care Team (Latest Contact Info) Description 06/25/2024 7:45 AM CDT Comprehensive Visit Department of Urology in [place], [place] [address] [place] [phone] Jacoby Turner APRN, C.N.P., M.S. [address] [place] [phone] Discharge Disposition: Home or Self Care Medical Devices Implanted Type Area Experience Planning Strategist Device Identifier Shelf Expiration Date Model / Serial / Lot Legacy Screw Set Ti Breakoff - [place] [id number] Implanted:Qty: 4 on 10/11/2009 Spine Implant Medtronic Description:Device Manufactu rer - Medtronic Sofamor Danek. Device Status Text - SPINE [id number]. Legacy Leonardo Ti 6.35 X 50 - [place] [id number] Implanted:Qty: 2 on 10/11/2009 Spine Implant Medtronic Description:Device Manufactu rer - Medtronic Sofamor Danek. Device Status Text - SPINE [id number]. Screw 6.35 Multi-Axial 6.5 X 35mm Ti - [place] [id number] Implanted:Qty: 2 on 10/11/2009 Spine Implant Medtronic Description:Device Manufactu rer - Medtronic Sofamor Danek. Device Status Text - SPINE [id number]. Screw 6.35 Multi-Axial 6.5 X 40mm Ti - [place] [id number] Implanted:Qty: 2 on 10/11/2009 Spine Implant Medtronic Description:Device Manufactu rer - Medtronic Sofamor Danek. Device Status Text - SPINE [id number]. Procedures Procedure Name Priority Date/Time Associated Diagnosis Comments OUTSIDE CT Routine 04/22/2024 1:35 PM CDT COMPREHENSIVE METABOLIC PANEL, S/P STAT 02/24/2023 12:46 PM CDT LIPID PANEL, S Routine 03/06/2017 8:33 AM CDT PATHOLOGY HOSPITAL ATTENDANT CYTOLOGY Routine 5 12:00 AM LOAN SERVICING OFFICER HIV-1/-2 AG AND AB SCREEN Routine 11/03/2014 12:18 PM LOAN SERVICING OFFICER from Last 3 Months or Most Recently [...] Provider Not In System IMG CT PROCEDURES [facility] NA * (ABNORMAL) Comprehensive Metabolic Panel (02/24/2023 12:46 PM CDT) Potassium, P 3.8 3.6 - 5.2 mmol/L 02/24/2023 1:15 PM CDT FRMT Sodium, P 137 135 - 145 mmol/L 02/24/2023 1:15 PM CDT FRMT Chloride, P 105 98 - 107 mmol/L 02/24/2023 1:15 PM CDT [facility]MT Bicarbonate, P 20(L) 22 - 29 mmol/L 02/24/2023 1:14 PM CDT FRMT Anion Gap, P 12 7 - 15 02/24/2023 1:15 PM CDT [facility]MT BUN (Blood Urea Nitrogen), P 12 6 - 21 mg/dL 02/24/2023 1:14 PM CDT FRMT Creatinine 0.55(L) 0.59 - 1.04 mg/dL 02/24/2023 1:14 PM CDT FRMT Estimated GFR (eGFR) >90 >=60 mL/min/BS A 02/24/2023 1:14 PM CDT FRMT Comment: Estimated GFR calculated using the 2020 CKD_EPI creatinine equation. Calcium, Total, P 9.2 8.6 - 10.0 mg/dL 02/24/2023 1:14 PM CDT FRMT Glucose, P 97 70 - 140 mg/dL 02/24/2023 1:14 PM CDT [facility]MT Protein, Total, P 7.3 6.3 - 7.9 g/dL 02/24/2023 1:14 PM CDT FRMT Albumin, P 4.5 3.5 - 5.0 g/dL 02/24/2023 1:14 PM CDT [facility]MT Aspartate Aminotransferase (AST), P 19 8 - 43 U/L 02/24/2023 1:14 PM CDT FRMT Alkaline Phosphatase, P 63 35 - 104 U/L 02/24/2023 1:14 PM CDT FRMT Alanine Aminotransferase (ALT), P 18 7 - 45 U/L 02/24/2023 1:14 PM CDT FRMT Bilirubin, Total, P 0.6 <=1.2 mg/dL 02/24/2023 1:14 PM CDT FRMT Blood (Blood, Venous) 02/24/2023 12:46 PM CDT 02/24/2023 12:54 PM CDT Carlos Ornelas M.D. LAB BLOOD ADD-ON [facility] [address] [place] [address], [facility] FRMT [place] [address] * (ABNORMAL) Lipid Panel (03/06/2017 8:33 AM [...] for FH and FDB is available through [employer]: FH/ADH Genetic Reflex Panel (test ADHP). Acquired (non-genetic) causes of markedly increased LDL cholesterol include cholestatic liver disease due to the presence of LpX. If a genetic form of hypercholesterolemia is suspected, family studies including biochemical testing for lipids (total cholesterol,triglycerides, LDL cholesterol and HDL cholesterol) are recommended. ??Please contact the laboratory at or the on-line test catalog at [employer] for information about how to order these tests or to speak with a genetic counselor. Further interpretation would require clinical information. Total Cholesterol/HDL Ratio 4.00 POWERCHART HXLDL/HDL 2 POWERCHART Blood 03/06/2017 8:33 AM CDT Nan Cui APRN, C.N.P., R.N. LAB BL OOD ADD-ON POWERCHART * Pathology HOSPITAL ATTENDANT Cytology (07/19/2015 12:00 AM LOAN SERVICING OFFICER) 07/19/2015 Narrative [facility] - 07/29/2015 10:16 AM LOAN SERVICING OFFICER [facility] [place] [address] [facility] [address] [place] [address] ??[phone] Patient Name: BELLA HOFFMAN Collected: 07/19/2015 Address: City/State/Zip: [address] [place] [address] ??[phone] Received: Reported: 07/20/2015 07/29/2015 Soc. Sec. #: ?/Age/Sex 1980 (Age: 34) ??F Physician(s): KATE CUI CNP Copy To: ? [facility] ??[id number] [facility] [place], ??[place] ??[id number] CYTOPATHOLOGY HOSPITAL ATTENDANT REPORT FINAL CYTOLOGIC DIAGNOSIS Pap Smear - ThinPrep with HPV: NEGATIVE FOR INTRAEPITHELIAL LESION OR MALIGNANCY REACTIVE/REPARATIVE CHANGES. ENDOCERVICAL CELLS/COMPONENT PRESENT. SATISFACTORY SPECIMEN FOR EVALUATION. ??This specimen required a physician interpretation under CLIA 1987 ?? Electronically Signed Out By [facility]/07/29/2015 ORIN BREAUX M.D. AM [facility](ASCP) The Pap test is a screening procedure [...] Date Complete: ? 07/28/2015 ? By: ??AJ Georginawrzynaijulia CT(ASCP) Date Reported: ? 07/29/2015 INTERPRETATION: Test: Aptima High Risk HPV Result: NEGATIVE FOR HIGH RISK HPV Specimen Description: ThinPrep? ? ? Pap Test PreservCyt Solution HPV by Trouble Lineman-Mediated Amplification (TMA) for E6/E7 viral messenger RNA [...] REQUESTED Nan Cui APRN, C.N.P., R.N. LAB ELLIOTT Garcia [place] ORDERABLES [facility] * HIV-1/-2 Ag and Ab Screen (11/03/2014 12:18 PM LOAN SERVICING OFFICER) HIV-1/-2 Antibody Negative Negative POWERCHART Comment: Negative result does not rule out HIV infection. If acute HIV infection is suspected in a high-risk individual, submit plasma specimen for HIV-1 RNA quantification test (HIVQU) and/or HIV-2 DNA/RNA test (FHV2Q). Test Performed by: [address] [address] Package Center Supervisor: Ari Enriquez II, M.D., Ph.D. Blood 11/03/2014 12:1 8 PM LOAN SERVICING OFFICER Mayra Benavidez M.D. LAB MICROBIOLOGY - BLOOD ORDERABLES POWERCHART from Last 3 Months or Most Recently Relevant to Health Maintenance Care Teams Router Operator Relationship Specialty Start Date End Date Laverne Lopez APRN, C.N.P. [address] [place] [phone] PCP - General 12/01/20
--- OUTSIDE RECORDS SUMMARY | 2024-06-18 08:41 | XMS_ITS | Encounter Summary ---
Author Organization [facility] Address [address] [place] [address] Care Team Providers Care Enrollment Consultant Name Role Phone Laverne Lopez APRN C.N.PFreya Primary Care Provi [facility] Reason for Referral * Outpatient (Routine) - Authorized Specialty Diagnoses / Procedures Referred By Contac t Referred To Contact Urology Diagnoses Microhematuria Nicotine Dependence Unspecified Matt Dugan M.D. [address] [place] [phone] [facility] Region Referral ID Status Reason Start Date Expiration Date V isits Requested Visits Authorized [id number] Authorized 04/15/2024 10/15/2025 1 1 Encounter Details Date Type Department Care Team (Latest Contact Info) Description 04/15/2024 [facility] AND [facility] [address] [place] [address] Matt Dugan M.D. [address] [place] [phone] Microhematuria (Primary Dx); Nicotine Dependence [...] often do you attend oriental orthodox or pentecostalism serv ices? Never 05/28/2020 Do you belong [...] Answer Date Recorded PHQ-2 Score 2 03/10/2020 [facility] of Occupat ional Health - Occupational [...] Sex Assigned at Female 09/16/2022 11:32 PM CLERK TRAVEL RESERVATIONS Gender Identity Female 03/10/2020 10:50 PM CDT Sexual Orientation Straight 03/10/2020 10 :50 PM CDT documented as of this encounter Plan of Treatment Upcoming Encounters Date Type Department Care Team (Latest Contact Info) Description 06/25/2024 7:45 AM CDT Comprehensive Visit Department of Urology in [place], [place] [address] [place] [phone] Jacoby Turner APRN, C.N.P., M.S. [facility] [place] [phone] Discharge Disposition: Home or Self Care Scheduled Referrals Name Type Priority Associated Diagnoses [...] documented as of this encounter Care Teams Enrollment Consultant Relationship Specialty Start Date End Date Laverne Lopez APRN, C.N.P. [address] [phone] PCP - General 12/01/20 documented as of this encounter
--- OUTSIDE RECORDS SUMMARY | 2024-06-18 08:41 | XMS_ITS | Encounter Summary ---
Author Organization [facility] Address [address] [place] [address] Care Team Providers Care Drum Printer Name Role Phone Lvaerne Lopez APRN C.N.PFreya Primary Care Provi [facility] Encounter Details Date Type Department Care Team (Late st Contact Info) Description 06/09/2024 Clinical Communication Department of Sports Medicine in [place], [place] [address] [place] [phone] Prescheduling, Provider Social History Tobacco Use Types Packs/Day Years [...] How often do you attend latter-day or hindu serv ices? Never 05/28/2020 Do [...] Date Recorded PHQ-2 Score 2 03/10/2020 [facility] - Occupational Stress Questionnaire Answer Date [...] Sex Assigned at Female 09/16/2022 11:32 PM FULFILLMENT ASSOCIATE Gender Identity Female 03/10/2020 10:50 PM CDT Sexual Orientation Straight 03/10/2020 10 :50 PM CDT documented as of this encounter Miscellaneous Notes * Telephone Encounter - ErinRolando Татьяна Avni - 06/09/2024 8:50 AM CDT SPORTS MEDICINE PRE-SCHEDULING QUESTIONNAIRE documented in this encounter Plan of Treatment Upcoming Encounters Date Type Department Care Team (Latest Contact Info) Description 06/25/2024 7:45 AM CDT Comprehensive Visit Department of Urology in [place], [place] [address] [place] [phone] Jacoby Turner APRN, C.N.P., M.S. [facility] [place] [phone] Discharge Disposition: Home or Self Care documented as of this encounter Visit Diagnoses Not on filedocumented in this encounter Additional Health Concerns Assessment Noted Time PHQ-9 Depression Total Score: 8 05/14/20 19 9:10 AM CDT documented as of this encounter Care Teams Drum Printer Relationship Specialty Start Date End Date Laverne Lopez APRN, C.N.P. [address] [place] [phone] PCP - General 12/01/20 documented as of this encounter
--- OUTSIDE RECORDS SUMMARY | 2024-06-18 08:41 | XMS_ITS | Clinical Summary ---
Author Organization [facility] Address [address] [place] [address] Care Team Providers Care Professor Of Sport Management Name Role Phone Laverne Lopez APRN C.N.P. Primary Care Provi bandar Source Comments Patient records contain information from all sites at [facility]. For routine questions regarding patient records, call [phone] during business hours, M-F 8:00 AM - 5:00 PM Central Time. Record requests for emergency care only can be directed to [phone] at any time.[facility] Allergies Active Allergy Reactions Criticality Noted Date [...] BMI 40-44 posted on 10/03 at 10:03 RUBBER WASHER. 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 (04/20/2019): Overview: 9 P trisomy Gene FRDA2 Diagnosed 2008 [facility] Deficiency Vitamin D 11/17/2013 Seizure Single 12/02/2012 [...] Clinical Communication Department of Sports Medicine in [place], [place] [address] [place] [id number] Prescheduling, Provider 04/15/2024 [facility] [address] [place] [address] Matt Dugan M.D. Microhematuria (Primary Dx); Nicotine [...] Never 05/28/2020 How often do you attend orthodoxy or religion serv ices? Never 05/28/2020 Do you belong to any clubs o r organizations such as orthodoxy groups, unions, fraternal or athletic groups, or [...] Answer Date Recorded PHQ-2 Score 2 03/10/2020 [facility] [place] of Occupat ional Health - Occupational Stress [...] Sex Assigned at Female 09/16/2022 11:32 PM RUBBER WASHER Gender Identity Female 03/10/2020 10:50 PM CDT [...] CDT Comprehensive Visit Department of Urology in [address] [phone] Jacoby Turner APRN, C.N.P., M.S. [address] [place] [phone] Discharge Disposition: Home or Self Care Health Maintenance Due Date Last Done Comments [...] this topic Medical Devices Implanted Type Area Flatbed Owner Operator Device Identifier Shelf Expiration Date Model / Serial / Lot Legacy Screw Set Ti Breakoff - [place] [id number] Implanted:Qty: 4 on 10/11/2009 Spine Implant Medtronic Description:Device Manufactu rer - Medtronic Sofamor [place]. Device Status Text - SPINE [id number]. Legacy Leonardo Ti 6.35 X 50 - [place] [id number] Implanted:Qty: 2 on 10/11/2009 Spine Implant Medtronic Description:Device Manufactu rer - Medtronic Sofamor [place]. Device Status Text - SPINE [id number]. Screw 6.35 Multi-Axial 6.5 X 35mm Ti - [place] [id number] Implanted:Qty: 2 on 10/11/2009 Spine Implant Medtronic Description:Device Manufactu rer - Medtronic Sofamor [place]. Device Status Text - SPINE [id number]. Screw 6.35 Multi-Axial 6.5 X 40mm Ti - [place] [id number] Implanted:Qty: 2 on 10/11/2009 Spine Implant Medtronic Description:Device Manufactu rer - Medtronic Sofamor [place]. Device Status Text - SPINE [id number]. Procedures Procedure Name Priority Date/Time Associated Diagnosis Comments OUTSIDE CT Routine 04/22/2024 1:35 PM CDT COMPREHENSIVE METABOLIC PANEL, S/P STAT 02/24/2023 12:46 PM CDT LIPID PANEL, S Routine 03/06/2017 8:33 AM CDT PATHOLOGY TECHNOLOGY CONSULTANT CYTOLOGY Routine 5 12:00 AM RUBBER WASHER HIV-1/-2 AG AND AB SCREEN Routine 11/03/2014 12:18 PM RUBBER WASHER from Last 3 Months or Most Recently [...] IMG CT PROCEDURES IIMS NA * (ABNORMAL) Comprehensive Metabolic Panel (02/24/2023 [...] CDT Carlos Ornelas M.D. LAB BLOOD ADD-ON [facility] [place] [address], [facility] [place] [address] * (ABNORMAL) Lipid Panel (03/06/2017 8:33 AM CDT) Pathologist [facility] Cholesterol, Total 170 <=199 MGDL POWERCHART Comment: [...] for FH and FDB is available through [facility]: FH/ADH Genetic Reflex Panel (test ADHP). Acquired (non-genetic) causes of markedly increased LDL cholesterol include cholestatic liver disease due to the presence of LpX. If a genetic form of hypercholesterolemia is suspected, family studies including biochemical testing for lipids (total cholesterol,triglycerides, LDL cholesterol and HDL cholesterol) are recommended. ??Please contact the laboratory at or the on-line test catalog at [facility] for information about how to order these tests or to speak with a genetic counselor. Further interpretation would require clinical information. Total Cholesterol/HDL Ratio 4.00 POWERCHART HXLDL/HDL 2 POWERCHART Blood 03/06/2017 8:33 AM CDT Nan Cui APRN, C.N.P., RFreyaNFreya LAB BL OOD ADD-ON POWERCHART * Pathology TECHNOLOGY CONSULTANT Cytology (07/19/2015 12:00 AM RUBBER WASHER) 07/19/2015 Narrative [facility] - 07/29/2015 10:16 AM RUBBER WASHER [facility] in [place] [address] [place], [place] ??[phone] Patient Name: BELLA HOFFMAN Collected: 07/19/2015 Address: [facility]/State/Zip: [address] [place] [address] ??[phone] Received: Reported: 07/20/2015 07/29/2015 Soc. Sec. #: ?/Age/Sex 1980 (Age: 34) ??F Physician(s): KATE CUI CNP Copy To: ? [facility] ??[id number] [facility], ??[place] ??[address] CYTOPATHOLOGY TECHNOLOGY CONSULTANT REPORT FINAL CYTOLOGIC DIAGNOSIS Pap Smear - ThinPrep with HPV: NEGATIVE FOR INTRAEPITHELIAL LESION OR MALIGNANCY REACTIVE/REPARATIVE CHANGES. ENDOCERVICAL CELLS/COMPONENT PRESENT. SATISFACTORY SPECIMEN FOR EVALUATION. ??This specimen required a physician interpretation under CLIA 1987 ?? Electronically Signed Out By [facility]/07/29/2015 ORIN BREAUX M.D. AM [facility](ASCP) The Pap test is a screening [...] ? Pap Test PreservCyt Solution HPV by Surgeon Chief-Mediated Amplification (TMA) for E6/E7 viral messenger RNA [...] C.N.P., R.N. LAB ELLIOTT Garcia COPATH ORDERABLES [facility] * HIV-1/-2 Ag and Ab Screen (11/03/2014 12:18 PM RUBBER WASHER) HIV-1/-2 Antibody Negative Negative POWERCHART Comment: Negative result does not rule out HIV infection. If acute HIV infection is suspected in a high-risk individual, submit plasma specimen for HIV-1 RNA quantification test (HIVQU) and/or HIV-2 DNA/RNA test (FHV2Q). Test Performed by: [place] [address] Supervising Architect: Ari Enriquez II, M.D., Ph.D. Blood 11/03/2014 12:1 8 PM RUBBER WASHER Mayra Benavidez M.D. LAB MICROBIOLOGY - BLOOD ORDERABLES POWERCHART from Last 3 Months or Most Recently Relevant to Health Maintenance Care Teams Professor Of Sport Management Relationship Specialty Start Date End Date Laverne Lopez, DREDGE MECHANIC, C.N.P. [address] [place] [address] PCP - General 12/01/20
--- OUTSIDE RECORDS SUMMARY | 2024-06-18 08:41 | XMS_ITS | Clinical Summary ---
Author Organization [facility] Address [address] [place] [address] Care Team Providers Care Eastern Philosophy Professor Name Role Phone Richard River MD Unavailable [phone] Allergies Active Allergy Reactions Criticality Noted [...] 145.2 kg (320 lb) 07/28/2020 1:12 PM ORDER ANALYST Height 144.8 cm (4' 9) 07/28/2020 1:12 PM ORDER ANALYST Body Mass Index 69.25 07/28/2020 1:12 PM ORDER ANALYST Plan of Treatment Not on file Care Teams Eastern Philosophy Professor Relationship Specialty Start Date End Date Richard River MD 06/15/20
== END 2024-06-17 10:44 | disposition home or self-care (01) ==
LOC: NFLDREF 06-18 08:36
PROVIDERS: PCP Family Medicine; Referring Provider Family Medicine; Visit Provider Family Medicine
DX: R35.0 Frequency of micturition (principal); N39.0 Urinary tract infection, site not specified; B37.31 Acute candidiasis of vulva and vagina; E66.01 Morbid (severe) obesity due to excess calories; M54.9 Dorsalgia, unspecified
CPT/HCPCS: 87086

== ENCOUNTER 2024-10-12 13:28 | Outpatient (CLI) | payer MEDICARE, MEDICAID, SELFPAY | END 2024-10-12 13:29 | disposition home or self-care (01) | LOC: MAMMO 13:28 | PROVIDERS: PCP Family Medicine; Visit Provider Family Medicine | DX: Z12.31 Encounter for screening mammogram for malignant neoplasm of breast (principal) | CPT/HCPCS: 77063; 77067 ==

== ENCOUNTER 2025-07-28 12:08 | Outpatient (CLI) | payer MEDICARE, MEDICAID, SELFPAY ==
[2025-07-28 15:53] LABS: Bacterial Vaginosis* Negative (Negative); Candida glab/krus NOT DETECTED (No Detected)
[2025-07-28 16:22] LABS: Chlamydia DNA Amplified* NOT DETECTED (No Detected); GC DNA Amplified* NOT DETECTED (No Detected)
[2025-07-30 20:52] LABS: HPV Source Cervix
[2025-08-03 09:40] LABS: Pap Test Digital Imaging Done
== END 2025-07-28 12:09 | disposition home or self-care (01) ==
PROVIDERS: PCP Family Medicine; Visit Provider Registered Nurse
DX: R10.20 Pelvic and perineal pain unspecified side (principal); Z12.4 Encounter for screening for malignant neoplasm of cervix
CPT/HCPCS: 81513; 87086; 87481; 87491; 87591; 87624; 87625; 87661; 88141; 88142; 88175

== ENCOUNTER 2025-08-10 17:40 | Outpatient (CLI) | payer MEDICARE, MEDICAID, SELFPAY ==
--- NOTE | 2025-08-10 17:30 | CRLHL7_ITS ---
For Patients: As a result of the Century Cures Act, medical imaging exams and procedure reports are released immediately into your electronic medical record. You may view this report before your referring provider. If you have questions, please contact your health care provider. INDICATION: 44 year-old female. Pelvic pain. Prior section. TECHNIQUE: Transvaginal pelvic ultrasound. A transabdominal approach was not performed as the patient`s urinary bladder was completely empty. FINDINGS: Nonvisualization of the ovaries. No free pelvic fluid. The uterus measures 9.0 x 4.8 x 5.4 cm. Cervical nabothian cysts. The endometrial stripe is prominent measuring 14.6 mm. This can be normal in a premenopausal female. Please correlate with any abnormalities regarding menstrual periods or bleeding per vagina. IMPRESSION : 1. Normal sized uterus. 2. Prominent endometrial stripe measuring 14.6 mm. This can be within normal limits in a premenopausal female. 3. Nonvisualization of the ovaries. No free pelvic fluid. Dictated by Laith Lemus MD @ 08/11/2025 10:15:18 AM (Electronically Signed)
== END 2025-08-10 17:41 | disposition home or self-care (01) ==
LOC: US 17:41
PROVIDERS: PCP Family Medicine; Visit Provider Registered Nurse
DX: R10.20 Pelvic and perineal pain unspecified side (principal)
CPT/HCPCS: 76830